=== PATIENT | male | born 1950 | race Caucasian/White ===

== ENCOUNTER 2016-07-13 05:52 | Day surgery (SDC) | payer MEDICARE, OTHER ==
[2016-07-13] MEDS ORDERED: Lactated Ringers 1,000 ML IV ONE (06:20)
[2016-07-13] MEDS ORDERED: Lactated Ringers 1,000 ML IV SCH (06:30)
[2016-07-13] MEDS ORDERED: Ketamine HCl 50 MG/ML IV ONE (08:30)
[2016-07-13] MEDS ORDERED: DIPRIVAN 200 MG/20 ML IV ONE (08:30)
[2016-07-13 08:36] VITALS: O2SAT 98
[2016-07-13 08:42] VITALS: BP 129/73; PULSE 69
--- NOTE | 2016-07-13 09:03 | OP ---
SURGERY DATE/TIME: 07/13/2016716 PREOPERATIVE DIAGNOSIS: History of colon polyps. POSTOPERATIVE DIAGNOSIS: Moderate to severe sigmoid diverticulosis otherwise normal colon. PROCEDURE: Colonoscopy. SURGEON: Dr. Hernandez. ANESTHESIA: MAC. Medications given by anesthesia department. HISTORY: The patient is a 65 year-old white male patient presenting now for his third colonoscopy. He reports that he had polyps found on his first examination. He represents now for re-evaluation. The patient was appraised of the risks of the procedure including the risk of perforation, phlebitis, untoward reaction to medication, bleeding, and missed lesions. The patient verbalized his understanding and desired to have the procedure performed. DESCRIPTION OF PROCEDURE: The patient was given the medications by the anesthesia department. He was placed in left lateral decubitus position. He had continuous pulse oximetry, ECG monitoring, intermittent blood pressure monitoring, and tidal CO2 monitoring during the examination. A digital rectal examination was performed and revealed normal anal sphincter tone and no masses and normal prostate. The flexible Olympus pediatric colonoscope was used to intubate the rectum. A view of the colon was developed sequentially to the cecum. Upon insertion and withdrawal, including a retroflex view in the rectum, was noted moderate to severe sigmoid diverticulosis, no other mucosal lesions were encountered. The scope was removed from the patient who tolerated the procedure well and was sent back to OP recovery in good condition. The prep was noted to be fair.
== END 2016-07-13 08:46 | disposition home or self-care (01) ==
LOC: SDC 05:52
PROVIDERS: ATTEND Family Medicine
PROC: 0DJD8ZZ Inspection of Lower Intestinal Tract, Via Natural or Artificial Opening Endoscopic (ICD-10-PCS; principal; 2016-07-13)
DX: K57.30 Diverticulosis of large intestine without perforation or abscess without bleeding (principal)
CPT/HCPCS: 00810; J2704

== ENCOUNTER 2018-04-13 12:18 | Observation (INO) | payer MEDICARE, OTHER ==
[2018-04-13] MEDS ORDERED: BABY ASPIRIN 81 MG CHEW PO ONE (12:37)
[2018-04-13] MEDS ORDERED: BABY ASPIRIN 81 MG CHEW ONE (12:44)
--- NOTE | 2018-04-13 12:44 | ERPHSYRPT ---
- History of Present Illness Time Seen by Provider: 04/13/18 12:32 Historian: patient Exam Limitations: no limitations Patient Subjective Stated Complaint: Pt states "I have been having chest pain all night and it is still there. I thought it was reflux but it has not gone away." Triage Nursing Assessment: Pt alert and oriented X 3, skin pwd Pt ambulates with an upright steady gait, able to speak in clear full sentences. PT in no apparent respiratory distress. Physician History: 67-year-old white male with history of Parkinson's, high blood pressure, GERD Patient arrives with complaint of pain in his anterior chest just to the left of the chest just to the left of the sternum and xiphoid. He states he began having the pain which she described as a heartburn last night at about midnight he took Prilosec it did not go away then 2 hours ago he began having a heaviness or pressure in the left side of the chest. He states he has been nauseous he has been short of breath he has not vomited no fevers has not been otherwise ill. Past medical history includes Parkinson's, high blood pressure, GERD, right total hip arthroplasty. Past surgical history includes cataracts, right total hip arthroplasty, sinus surgery. Social history negative tobacco negative illicit drugs positive occasional beer. Timing/Duration: today (pain like heartburn at midnight, turned to pressure 2 hours ago) Activities at Onset: none Quality: other (initially like heartburn now pressure) Location: other (Just lateral to the sternum and xiphoid( left)) Severity of Pain-Max: moderate Severity of Pain-Current: mild Modifying Factors: Improves With: nothing Associated Symptoms: nausea, heartburn, No vomiting, No palpitations, No abdominal pain, No cough, No hurts to breathe, No diaphoresis, No chills, No fever, No fatigue, No weakness, No swelling/lump in chest, No syncope, No rash, No headache, No dizziness, No edema, No back pain Prior Chest Pain/Cardiac Workup: no prior chest pain Nitro Today/Relief: no nitro taken today Aspirin Treatment Today: 81 mg x 4, provided by ED Allergies/Adverse Reactions: No Known Drug Allergies Allergy (Verified 07/09/16 11:43) Home Medications: Aspirin [Aspir 81] 81 mg PO DAILY 07/22/11 [History] Amantadine HCl [Amantadine] 100 mg PO BID 07/09/16 [History] Amlodipine Besylate 10 mg [Norvasc 10 MG] 10 mg PO DAILY 07/09/16 [History] Metoprolol Succinate 50 mg [Toprol Xl 50 MG] 50 mg PO DAILY 07/09/16 [ History] Rasagiline Mesylate [Azilect] 1 mg PO DAILY 07/09/16 [History] Tamsulosin HCl 0.4 mg [Flomax 0.4 MG] 0.4 mg PO DAILY 07/09/16 [History] Omeprazole 20 MG [Prilosec 20 mg] 20 mg PO DAILY 07/13/16 [History] Hx Tetanus, Diphtheria Vaccination/Date Given: Yes Hx Influenza Vaccination/Date Given: Yes Hx Pneumococcal Vaccination/Date Given: Yes Immunizations Up to Date: Yes - Review of Systems Constitutional: No Fever, No Chills Eyes: No Symptoms Ears, Nose, & Throat: No Symptoms Respiratory: Dyspnea, No Cough Cardiac: Chest Pain, No Edema, No Palpitations, No Syncope, No Orthopnea, No PND Abdominal/Gastrointestinal: Nausea, No Abdominal Pain, No Vomiting, No Diarrhea , No Constipation, No Hematemesis, No Hematochezia, No Melena, No Dysphagia, No Appetite Changes Genitourinary Symptoms: No Dysuria Musculoskeletal: No Back Pain, No Neck Pain Skin: No Rash Neurological: No Dizziness, No Focal Weakness, No Sensory Changes Psychological: No Symptoms Endocrine: No Symptoms All Other Systems: Reviewed and Negative - Past Medical History Pertinent Past Medical History: Yes Neurological History: Other ENT History: No Pertinent History Cardiac History: Hypertension Respiratory History: No Pertinent History Endocrine Medical History: No Pertinent History Musculoskeletal History: Other GI Medical History: GERD History: No Pertinent History Psycho-Social History: No Pertinent History Male Reproductive Disorders: No Pertinent History Other Medical History: R WINIFRED 2006 - Past Surgical History Past Surgical History: Yes Neuro Surgical History: No Pertinent History Cardiac: No Pertinent History Respiratory: Other Gastrointestinal: No Pertinent History Genitourinary: No Pertinent History Musculoskeletal: Joint Replacement Male Surgical History: No Pertinent History Other Surgical History: sinus surgery,right hip replacement - Social History Smoking Status: Former smoker Exposure to second hand smoke: Yes Drug Use: none Patient Lives Alone: No - Nursing Vital Signs Nursing Vital Signs: Initial Vital Signs Temperature 98.4 F 04/13/18 12:22 Pulse Rate 96 H 04/13/18 12:22 Respiratory Rate 16 04/13/18 12:22 Blood Pressure 163/99 04/13/18 12:22 O2 Sat by Pulse Oximetry 98 04/13/18 12:22 Pain Scale Pain Intensity 2 - Physical Exam General Appearance: no apparent distress, alert Eye Exam: PERRL/EOMI, eyes nml inspection Ears, Nose, Throat Exam: normal ENT inspection, moist mucous membranes Neck Exam: normal inspection, non-tender, supple, full range of motion Respiratory Exam: normal breath sounds, lungs clear, No respiratory distress Cardiovascular Exam: regular rate/rhythm, normal heart sounds, capillary refill <2 sec Gastrointestinal/Abdomen Exam: soft, No tenderness, No mass Back Exam: normal inspection, No CVA tenderness, No vertebral tenderness Extremity Exam: normal inspection, normal range of motion Neurologic Exam: alert, oriented x 3, cooperative, 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 Negative pulmonary embolus. No acute cardiopulmonary abnormalities. 2. Evidence for old granulomatous disease .) Ordered Tests: Active Orders 24 hr Category Date Time Status Clinical Molecular Geneticist STAT Care 04/13/18 12:37 Active EKG-ER Only STAT Care 04/13/18 12:37 Active IV Insertion STAT Care 04/13/18 12:37 Active Pulse Oximetry (ED) STAT Care 04/13/18 12:37 Active CHEST 1 VIEW (PORTABLE) Stat Exams 04/13/18 12:37 Completed CHEST WITH CONTRAST [CT] Stat Exams 04/13/18 13:18 Completed AMYLASE Stat Lab 04/13/18 12:37 Completed CBC W DIFF Stat Lab 04/13/18 12:37 Completed CMP Stat Lab 04/13/18 12:37 Completed D-DIMER QUANTITATION Stat Lab 04/13/18 12:37 Completed LIPASE Stat Lab 04/13/18 12:37 Completed PROTIME WITH INR Stat Lab 04/13/18 12:37 Completed PTT Stat Lab 04/13/18 12:37 Completed TROPONIN Q3H Lab 04/13/18 12:45 Completed TROPONIN Q3H Lab 04/13/18 15:45 Ordered TROPONIN Q3H Lab 04/13/18 18:45 Ordered TROPONIN Q3H Lab 04/13/18 21:45 Ordered TROPONIN Q3H Lab 04/14/18 00:45 Ordered Medication Summary Generic Name Dose Route Start Last Admin Trade Name Freq PRN Reason Stop Dose Admin Pantoprazole Sodium 40 mg 04/13/18 14:48 Protonix 40 Mg Iv IV 04/13/18 14:49 STAT ONE Discontinued Medications Generic Name Dose Route Start Last Admin Trade Name Freq PRN Reason Stop Dose Admin Aspirin 324 mg 04/13/18 12:37 04/13/18 12:45 Baby Aspirin 81 Mg Chew PO 04/13/18 12:38 324 mg STAT ONE Administration Aspirin Confirm 04/13/18 12:44 Baby Aspirin 81 Mg Chew Administered 04/13/18 12:45 Dose 324 mg .ROUTE .[facility]-MED ONE Lab/Rad Data: Laboratory Result Diagrams 04/13/18 12:37 04/13/18 12:37 Laboratory Results 04/13/18 04/13/18 04/13/18 Range/Units 12:45 12:37 12:37 WBC (4.0-10.5) K/mm3 RBC (4.1-5.6) M/mm3 Hgb (12.5-18.0) gm/dl Hct (42-50) % MCV (78-100) fl MCH (26-32) pg MCHC (32-36) g/dl RDW (11.5-14.0) % Plt Count (150-450) K/mm3 MPV (6-9.5) fl Gran % (36.0-66.0) % Eos # (Auto) (0-0.5) Absolute Lymphs (auto) (1.0-4.6) Absolute Monos (auto) (0.0-1.3) Lymphocytes % (24.0-44.0) % Monocytes % (0.0-12.0) % Eosinophils % (0.00-5.0) % Basophils % (0.0-0.4) % Absolute Granulocytes (1.4-6.9) Basophils # (0-0.4) PT 12.2 (8.83-12.87) SECONDS INR 1.05 (0.8-3.0) APTT 30.4 (24.1-36.1) SECONDS D-Dimer 1084 H* (215-500) ng/mL Sodium 142 (137-145) mmol/L Potassium 4.1 (3.5-5.1) mmol/L Chloride 104 (98-107) mmol/L Carbon Dioxide 28 (22-30) mmol/L Anion Gap 13.8 (5-15) MEQ/L BUN 14 (9-20) mg/dL Creatinine 0.81 (0.66-1.25) mg/dL Estimated GFR > 60.0 ML/MIN Glucose 113 H (74-106) mg/dL Calcium 10.5 H (8.4-10.2) mg/dL Total Bilirubin 0.60 (0.2-1.3) mg/dL AST 27 (17-59) U/L ALT 23 (0-50) U/L Alkaline Phosphatase 92 (38-126) U/L Troponin I < 0.012 (0.000-0.034) ng/mL Serum Total Protein 7.9 (6.3-8.2) g/dL Albumin 4.5 (3.5-5.0) g/dL Amylase 40 (30-110) U/L Lipase 218 (23-300) U/L 04/13/18 Range/Units 12:37 WBC 8.1 (4.0-10.5) K/mm3 RBC 5.40 (4.1-5.6) M/mm3 Hgb 15.6 (12.5-18.0) gm/dl Hct 48.1 (42-50) % MCV 89.1 (78-100) fl MCH 28.9 (26-32) pg MCHC 32.4 (32-36) g/dl RDW 13.4 (11.5-14.0) % Plt Count 194 (150-450) K/mm3 MPV 11.1 H (6-9.5) fl Gran % 79.4 H (36.0-66.0) % Eos # (Auto) 0.02 (0-0.5) Absolute Lymphs (auto) 0.99 L (1.0-4.6) Absolute Monos (auto) 0.65 (0.0-1.3) Lymphocytes % 12.3 L (24.0-44.0) % Monocytes % 8.0 (0.0-12.0) % Eosinophils % 0.2 (0.00-5.0) % Basophils % 0.1 (0.0-0.4) % Absolute Granulocytes 6.41 (1.4-6.9) Basophils # 0.01 (0-0.4) PT (8.83-12.87) SECONDS INR (0.8-3.0) APTT (24.1-36.1) SECONDS D-Dimer (215-500) ng/mL Sodium (137-145) mmol/L Potassium (3.5-5.1) mmol/L Chloride (98-107) mmol/L Carbon Dioxide (22-30) mmol/L Anion Gap (5-15) MEQ/L BUN (9-20) mg/dL Creatinine (0.66-1.25) mg/dL Estimated GFR ML/MIN Glucose (74-106) mg/dL Calcium (8.4-10.2) mg/dL Total Bilirubin (0.2-1.3) mg/dL AST (17-59) U/L ALT (0-50) U/L Alkaline Phosphatase (38-126) U/L Troponin I (0.000-0.034) ng/mL Serum Total Protein (6.3-8.2) g/dL Albumin (3.5-5.0) g/dL Amylase (30-110) U/L Lipase (23-300) U/L - Progress Progress: improved Air Movement: fair Progress Note: 04/13/18 14:49 67-year-old white male arrives with complaint of pain in the sternal region and left side of chest symptoms since midnight last night associated with nausea. Initially described as heartburn but later 2 hours prior to arrival described as pressure. Patient is given aspirin 324 mg orally he states the pressure is gone now he is having heartburn again. EKG of the patient remarkable for sinus rhythm 87 bpm axis S1/every 3 pattern patient with several PVCs there are Q waves in leads 3 and aVF there are no acute ST or T wave changes Patient had an elevated d-dimer is chest x-ray was negative for pulmonary embolism or cardiopulmonary abnormality. Chest x-ray was negative for cardiopulmonary abnormalities. Patient's chemistry troponin and CBC were essentially normal. I've discussed the case with Dr. Hernandez the patient's family physician. He has recommended that we give the patient Protonix [address] the patient in observation telemetry and obtain serial cardiac enzymes. - Departure Time of Disposition: 14:51 Departure Disposition: Observation Clinical Impression: Chest pain Qualifiers: Chest pain type: unspecified Qualified Code(s): R07.9 - Chest pain, unspecified Condition: Fair Critical Care Time: No Referrals: VENESSA HERNANDEZ [Primary Care Provider] -
[2018-04-13 12:50] LABS: BASOPHIL % 0.1 % (0.0-0.4); Basophil (Absolute #) 0.01 (0-0.4); Eosinophil % 0.2 % (0.00-5.0); Eosinophil (Absolute #) 0.02 (0-0.5); Granulocyte Absolute (ANC) 6.41 (1.4-6.9); Granulocytes % 79.4 % (36.0-66.0); Hematocrit 48.1 % (42-50); Hemoglobin 15.6 gm/dl (12.5-18.0); Lymphocyte (Absolute #) 0.99 (1.0-4.6); Lymphocytes % 12.3 % (24.0-44.0); Mean Cell Volume 89.1 fl (78-100); Mean Corpuscular Hemoglobin 28.9 pg (26-32); Mean Corpuscular Hgb Concent. 32.4 g/dl (32-36); Mean Platelet Volume 11.1 fl (6-9.5); Monocyte (Absolute #) 0.65 (0.0-1.3); Platelet Count 194 K/mm3 (150-450); Red Cell Distribution Width 13.4 % (11.5-14.0); White Blood Count 8.1 K/mm3 (4.0-10.5)
--- NOTE | 2018-04-13 12:54 | XRAY ---
Indication: Chest pain and nausea. Comparison: December 12, 2014. Portable chest remains clear. Heart and mediastinal structures within normal limits. Bony thorax intact again with mild degenerative changes. Impression: Stable nonacute chest.
[2018-04-13 12:56] LABS: INR 1.05 (0.8-3.0); PROTIME 12.2 SECONDS (8.83-12.87)
[2018-04-13 12:59] LABS: PTT 30.4 SECONDS (24.1-36.1)
[2018-04-13 13:01] LABS: ALBUMIN 4.5 g/dL (3.5-5.0); ALKALINE PHOSPHATASE 92 U/L (38-126); AMYLASE 40 U/L (30-110); ANION GAP 13.8 MEQ/L (5-15); BLOOD UREA NITROGEN 14 mg/dL (9-20); CHLORIDE 104 mmol/L (98-107); Calcium 10.5 mg/dL (8.4-10.2); Carbon Dioxide 28 mmol/L (22-30); Creatinine 1 0.81 mg/dL (0.66-1.25); Glucose 113 mg/dL (74-106); LIPASE 218 U/L (23-300); Potassium 4.1 mmol/L (3.5-5.1); SGOT/AST 27 U/L (17-59); SGPT/ALT 23 U/L (0-50); SODIUM 142 mmol/L (137-145); Total Protein 7.9 g/dL (6.3-8.2)
--- NOTE | 2018-04-13 14:11 | XRAY ---
Indication: Chest pain. Elevated d-dimer. Multiple contiguous axial images obtained through the chest using 80 cc Isovue 370 contrast and PE protocol. Comparison: None There is satisfactory opacification of the pulmonary arteries to include the lobar and segmental branches. No filling defect or pulmonary embolus. Heart is not enlarged. Aorta is normal in course and caliber. Subcarinal chunky calcified nodes. No pathologic mediastinal/hilar lymphadenopathy. Lungs demonstrate minimal bilateral dependent atelectasis and right lower lobe calcified granuloma. No suspicious pulmonary mass, infiltrate, or effusion. Bony thorax intact with mild degenerative changes throughout the spine. Limited upper abdomen unremarkable. Impression: 1. Negative pulmonary embolus. No acute cardiopulmonary abnormalities. 2. Evidence for old granulomatous disease. CT DI 27.39
[2018-04-13] MEDS ORDERED: PROTONIX 40 MG IV IV ONE ×2 (14:48→14:51)
[2018-04-13] MEDS ORDERED: MEDICATION INTERVENTION PO SCH ×2 (17:45)
[2018-04-13] MEDS: NORVASC 5 MG PO SCH (18:13)
[2018-04-13] MEDS: Flomax 0.4 MG PO SCH (18:13)
[2018-04-13] MEDS: Toprol Xl 50 MG PO SCH (18:13)
[2018-04-13] MEDS ORDERED: Carafate 1 GM PO ONE (19:49)
[2018-04-13] MEDS: Carafate 1 GM PO SCH (21:01)
[2018-04-13] MEDS: Sodium Chloride 0.9% 10 ML FLUSH Syringe IV SCH (21:01)
[2018-04-13] MEDS ORDERED: NON-FORMULARY ITEM (Amantadine Hcl [Amantadine] 100 MG) PO SCH (22:00)
[2018-04-14 02:11] LABS: BASOPHIL % 0.2 % (0.0-0.4); Basophil (Absolute #) 0.02 (0-0.4); Eosinophil % 2.7 % (0.00-5.0); Eosinophil (Absolute #) 0.22 (0-0.5); Granulocytes % 65.8 % (36.0-66.0); Hematocrit 44.6 % (42-50); Hemoglobin 14.4 gm/dl (12.5-18.0); Lymphocyte (Absolute #) 1.61 (1.0-4.6); Lymphocytes % 19.6 % (24.0-44.0); Mean Cell Volume 89.2 fl (78-100); Mean Corpuscular Hemoglobin 28.8 pg (26-32); Mean Corpuscular Hgb Concent. 32.3 g/dl (32-36); Mean Platelet Volume 10.8 fl (6-9.5); Monocyte (Absolute #) 0.96 (0.0-1.3); Monocytes % 11.7 % (0.0-12.0); Platelet Count 185 K/mm3 (150-450); Red Cell Distribution Width 13.4 % (11.5-14.0); White Blood Count 8.2 K/mm3 (4.0-10.5)
[2018-04-14 02:27] LABS: ALBUMIN 4.1 g/dL (3.5-5.0); ALKALINE PHOSPHATASE 72 U/L (38-126); ANION GAP 13.2 MEQ/L (5-15); BLOOD UREA NITROGEN 13 mg/dL (9-20); CHLORIDE 104 mmol/L (98-107); Calcium 9.4 mg/dL (8.4-10.2); Carbon Dioxide 26 mmol/L (22-30); Creatinine 1 0.87 mg/dL (0.66-1.25); Glucose 103 mg/dL (74-106); Potassium 3.9 mmol/L (3.5-5.1); SGOT/AST 24 U/L (17-59); SGPT/ALT 20 U/L (0-50); SODIUM 139 mmol/L (137-145); Total Protein 7.2 g/dL (6.3-8.2)
[2018-04-14] MEDS: Sodium Chloride 0.9% 10 ML FLUSH Syringe IV SCH (05:42)
[2018-04-14] MEDS ORDERED: Lactated Ringers 1,000 ML IV SCH (06:30)
[2018-04-14] MEDS: Carafate 1 GM PO SCH (07:05)
[2018-04-14] MEDS: NORVASC 5 MG PO SCH (08:27)
[2018-04-14] MEDS: Flomax 0.4 MG PO SCH (08:27)
[2018-04-14] MEDS: Toprol Xl 50 MG PO SCH (08:32)
--- NOTE | 2018-04-14 08:40 | OP ---
SURGERY DATE/TIME: 04/14/2018 0740 PREOPERATIVE DIAGNOSIS: Epigastric pain. POSTOPERATIVE DIAGNOSIS: Moderate to severe esophagitis. PROCEDURE: EGD. SURGEON: Dr. Hernandez. ANESTHESIA: MAC. Medications given by anesthesia department. BRIEF HISTORY: The patient is a 67 year old white male patient presenting now for epigastric pain. He had stopped his Prilosec several days ago and began having epigastric pain. The patient did have history previously of Hahn's esophagus. The patient was felt the need to have endoscopic evaluation. He did rule out for myocardial infarction. The patient was appraised of the risks of the procedure including the risk of perforation, phlebitis, untoward reaction to medication, bleeding and missed lesions. The patient verbalized his understanding and desired to have the procedure performed. DESCRIPTION OF PROCEDURE: The patient was given the medications by the anesthesia department. He had continuous pulse oximetry, ECG monitoring, intermittent blood pressure monitoring and tidal CO2 monitoring during the examination. He was placed in the left lateral decubitus position. A bite block was placed and the flexible Olympus gastroscope was used to intubate the oropharynx. The scope was easily passed in the esophagus which appeared to be friable and erythematous throughout. The stomach was entered where normal gastric rugal folds were seen and these distended nicely with insufflation of air. The scope was passed along the greater curvature of the stomach to the antrum. The pylorus was intubated. Duodenum inspected and found to be normal. The scope is withdrawn towards the stomach. Again, a retroflex view was obtained of the lesser curvature, fundus and cardia regions of the stomach and these appeared to be essentially normal. The scope was then withdrawn from the patient who tolerated the procedure well and was sent back to the [facility] [place] in good condition.
--- NOTE | 2018-04-14 09:17 | SSS ---
DISCHARGE DIAGNOSIS: ESOPHAGITIS. PROCEDURE: EGD. HISTORY: The patient is 67 year-old white male patient who presented to the emergency room with epigastric pain. The patient was concerned for his heart. He reports that he had stopped taking omeprazole several days ago because he read that he should not continue to take it continuously. He began having epigastric pain and was seen in the emergency room. He was felt to need to be admitted to rule out myocardial infarction. He was admitted to the hospital for evaluation and management. PAST MEDICAL/SURGICAL HISTORY: Significant for gastroesophageal reflux disease. He has Parkinson's disease as well fairly controlled. HOME MEDICATIONS: Include aspirin 81 mg a day, amantadine 100 mg b.i.d., Norvasc 10 mg a day, metoprolol extended release 50 mg a day, Azilect 1 mg a day, Tamsulosin 0.4 mg a day, omeprazole 20 mg a day. ALLERGIES: NKDA. PHYSICAL EXAMINATION: The patient's vital signs on admission showed temperature 98.4F, pulse 96, respiratory rate 16, blood pressure 163/99. O2 saturation 98% on room air. HEENT: Normocephalic, atraumatic. Pupils equal round reactive to light. Extraocular movements intact. Oropharynx is pink and moist. NECK: Supple without lymphadenopathy, thyromegaly or JVD. CHEST: Clear to auscultation. HEART: Regular rate and rhythm without murmurs, rubs or gallops. ABDOMEN: Soft, somewhat tender in the epigastric region but no palpable masses were felt. EXTREMITIES: Without cyanosis, clubbing or edema. NEUROLOGIC: The patient is alert and oriented x3. No focal deficits are noted. LAB DATA AND TESTS: The patient's laboratory studies have shown CT scan of the chest to be stable and nonacute. It was negative for evidence of pulmonary embolism. He had an elevated D-dimer leading to the chest CT. There was evidence for old granulomatous disease. His metabolic panel showed a sugar of 113, BUN 14, creatinine 0.81. Electrolytes normal. Liver enzymes normal. Amylase and lipase were normal. Again, his D-dimer was 1,084, international normalized ratio was 1.05. Troponins have been less than 0.012 on separate occasions. His hemoglobin was 14.4, white count 8,200, PLT count 185,000. HOSPITAL COURSE: By the next morning the patient received IV Protonix. He was also given Pepcid and Carafate. By the next morning he was feeling essentially well. We made the decision to proceed with the EGD which was performed on the morning of 04/14/2018. What was seen as a moderate to severe esophagitis but otherwise the stomach appeared to be normal as did the duodenum. The patient was allowed to return back to the [facility] [place] and to have breakfast and afterwards he was allowed to return home with instructions on his medicine list changed to not take aspirin. We added Pepcid and Carafate to his medical regimen. He will see me in the office in one week.
[2018-04-14 09:30] VITALS: BP 143/74; PULSE 74; O2SAT 94
[2018-04-14] MEDS ORDERED: Ketamine HCl 50 MG/ML IJ ONE (09:34)
[2018-04-14] MEDS ORDERED: DIPRIVAN 200 MG/20 ML IV ONE (09:34)
[2018-04-14] MEDS ORDERED: PATIENT OWN MEDICATION PO SCH ×2 (10:00)
[2018-04-14] MEDS ORDERED: NON-FORMULARY ITEM (Omeprazole 20 Mg [Prilosec 20 Mg] 20 MG) PO SCH (10:00)
[2018-04-14] MEDS ORDERED: PROTONIX 40 MG IV IV SCH (10:00)
[2018-04-14] MEDS ORDERED: Protonix 40MG Tablet PO SCH (10:00)
[2018-04-14] MEDS ORDERED: Ecotrin 325 MG PO SCH (10:00)
[2018-04-14] MEDS ORDERED: NON-FORMULARY ITEM (Amlodipine Besylate 10 Mg [Norvasc 10 Mg] 10 MG) PO SCH (10:00)
[2018-04-14] MEDS ORDERED: Pepcid 20 MG PO SCH (10:00)
[2018-04-14] MEDS ORDERED: RASAGILINE MESYLATE 1 MG PO SCH (10:00)
== END 2018-04-14 09:35 | disposition home or self-care (01) ==
LOC: ED 12:18 → MED SURG 15:11
PROVIDERS: ADMIT Family Medicine; ATTEND Family Medicine
DX: K20.9 Esophagitis, unspecified (principal); Z79.899 Other long term (current) drug therapy
CPT/HCPCS: 36000; 36415; 43235; 71045; 71260; 80053; 82150; 83690; 84484; 85025; 85379; 85610; 85730; 93005; 93041; 93268; 96374; 99285; G0378; 96375; J2704; A9270-GY

== ENCOUNTER 2020-11-06 09:07 | Observation (INO) | payer MEDICARE ==
[2020-11-06] MEDS ORDERED: Lasix 20 MG/2 ML IV SCH (11:30)
[2020-11-06 11:51] LABS: ABO TYPING A; Antibody Screen NEGATIVE (NEGATIVE); RH TYPING POSITIVE
[2020-11-06 11:52] LABS: CROSS MATCH (PRBC) COMPATIBLE (COMPATIBLE)
[2020-11-06 12:07] LABS: BLOOD UREA NITROGEN 19 mg/dL (9-20); CHLORIDE 103 mmol/L (98-107); Calcium 8.3 mg/dL (8.4-10.2); Carbon Dioxide 27 mmol/L (22-30); Creatinine 1 0.67 mg/dL (0.66-1.25); EST GLOMERULAR FILTRATION RATE > 60.0 ML/MIN; Glucose 111 mg/dL (74-106); Potassium 3.5 mmol/L (3.5-5.1); SODIUM 138 mmol/L (137-145)
[2020-11-06] MEDS: Sodium Chloride 0.9% 1000 ML 1,000 ML IV SCH ×2 (13:07→21:16)
[2020-11-06] MEDS ORDERED: TYLENOL 325 MG PO PRN (14:04)
[2020-11-06] MEDS ORDERED: HYDROCODONE-ACETAMIN 10-325 MG PO PRN (14:04)
[2020-11-06] MEDS ORDERED: MENTHOL TP PRN (14:04)
[2020-11-06] MEDS ORDERED: METHYL SALICYLATE TP PRN (14:04)
[2020-11-06] MEDS ORDERED: Voltaren GEL TP PRN (14:04)
[2020-11-06] MEDS ORDERED: ROTIGOTINE TD SCH (14:15)
[2020-11-06 14:23] LABS: Appearance CLEAR (CLEAR); Bilirubin NEGATIVE (NEGATIVE); Blood NEGATIVE Ery/ul (0-5); Glucose NEGATIVE (NEGATIVE); Ketones SMALL (NEGATIVE); Leukocyte Esterase NEGATIVE (NEGATIVE); Mucus SLIGHT /HPF (NEGATIVE); Nitrite NEGATIVE (NEGATIVE); Protein,Urine Dip NEGATIVE (Negative); Specific Gravity 1.018 (1.005-1.025); Urobilinogen 2 mg/dL (0-1); WBC 0-2 /HPF (0-5)
[2020-11-06] MEDS ORDERED: CARBIDOPA PO SCH (15:00)
[2020-11-06] MEDS ORDERED: LEVODOPA PO SCH (15:00)
[2020-11-06] MEDS ORDERED: MEDICATION INTERVENTION MC SCH ×6 (15:00→15:15)
[2020-11-06] MEDS ORDERED: ENTACAPONE 200 MG PO SCH (15:00)
[2020-11-06] MEDS ORDERED: PATIENT OWN MEDICATION PO SCH (17:00)
[2020-11-06] MEDS ORDERED: Sodium Chloride 0.9% 250 ML 250 ML IV ONE (19:49)
[2020-11-06] MEDS: PATIENT OWN MEDICATION PO SCH ×2 (21:13)
[2020-11-07 00:46] LABS: Hematocrit 29.5 % (42-50)
[2020-11-07 01:13] LABS: Hemoglobin 8.9 gm/dl (12.5-18.0)
[2020-11-07 01:16] LABS: ANION GAP 9.4 MEQ/L (5-15); BLOOD UREA NITROGEN 15 mg/dL (9-20); CHLORIDE 105 mmol/L (98-107); Calcium 8.1 mg/dL (8.4-10.2); Carbon Dioxide 27 mmol/L (22-30); Creatinine 1 0.66 mg/dL (0.66-1.25); EST GLOMERULAR FILTRATION RATE > 60.0 ML/MIN; Glucose 97 mg/dL (74-106); Potassium 3.6 mmol/L (3.5-5.1); SODIUM 138 mmol/L (137-145)
[2020-11-07] MEDS ORDERED: Geodon 20 MG INJ IM ONE (01:59)
[2020-11-07] MEDS ORDERED: Sterile H2O 10 ml IJ ONE (02:07)
[2020-11-07 07:28] LABS: Hematocrit 31.9 % (42-50); Hemoglobin 9.4 gm/dl (12.5-18.0); Mean Cell Volume 101.9 fl (78-100); Mean Corpuscular Hgb Concent. 29.5 g/dl (32-36); Mean Platelet Volume 9.6 fl (7.5-11.0); Platelet Count 432 K/mm3 (150-450); Red Blood Count 3.13 M/mm3 (4.1-5.6); Red Cell Distribution Width 19.2 % (11.5-14.0); White Blood Count 5.9 K/mm3 (4.0-10.5)
[2020-11-07 07:56] LABS: ANION GAP 8.6 MEQ/L (5-15); BLOOD UREA NITROGEN 14 mg/dL (9-20); CHLORIDE 106 mmol/L (98-107); Calcium 7.9 mg/dL (8.4-10.2); Carbon Dioxide 27 mmol/L (22-30); EST GLOMERULAR FILTRATION RATE > 60.0 ML/MIN; Glucose 89 mg/dL (74-106); Potassium 3.4 mmol/L (3.5-5.1); SODIUM 139 mmol/L (137-145)
[2020-11-07] MEDS: PATIENT OWN MEDICATION PO SCH ×2 (09:27→09:28)
[2020-11-07] MEDS ORDERED: ZINC PO SCH (10:00)
[2020-11-07] MEDS ORDERED: VIT E PO SCH (10:00)
[2020-11-07] MEDS ORDERED: VIT A PO SCH (10:00)
[2020-11-07] MEDS ORDERED: VIT C PO SCH (10:00)
[2020-11-07] MEDS ORDERED: Ocuvite Tablet PO SCH (10:00)
[2020-11-07] MEDS ORDERED: RASAGILINE MESYLATE 1 MG PO SCH (10:00)
[2020-11-07] MEDS ORDERED: Flomax 0.4 MG PO SCH (10:00)
[2020-11-07] MEDS ORDERED: NON-FORMULARY ITEM (Amlodipine Besylate 10 Mg [Norvasc 10 Mg] 10 MG) PO SCH (10:00)
[2020-11-07] MEDS ORDERED: Toprol-Xl 25MG Tablets PO SCH (10:00)
[2020-11-07] MEDS ORDERED: PATIENT OWN MEDICATION TOP SCH (10:00)
[2020-11-07] MEDS ORDERED: NON-FORMULARY ITEM (Omeprazole 20 Mg [Prilosec 20 Mg] 20 MG) PO SCH (10:00)
[2020-11-07] MEDS ORDERED: COPPER PO SCH (10:00)
[2020-11-07] MEDS ORDERED: PATIENT OWN MEDICATION PO SCH ×2 (10:00)
[2020-11-07] MEDS ORDERED: AMANTADINE HCL PO SCH (10:00)
[2020-11-07] MEDS ORDERED: NORVASC 5 MG PO SCH (10:00)
[2020-11-07] MEDS ORDERED: Protonix 20MG Tablet PO SCH (10:00)
[2020-11-07 12:02] VITALS: BP 132/79; PULSE 79; O2SAT 94
== END 2020-11-07 15:55 ==
LOC: UNDOADMOB 09:43 → MED SURG 09:43
PROVIDERS: ADMIT Family Medicine; ATTEND Family Medicine
DX: D64.9 Anemia, unspecified (principal); I48.91 Unspecified atrial fibrillation; Z79.01 Long term (current) use of anticoagulants; Z79.899 Other long term (current) drug therapy; Z20.822 Contact with and (suspected) exposure to COVID-19
CPT/HCPCS: 36415; 80048; 80053; 81001; 85014; 85018; 85025; 85027; 86850; 86900; 86901; 86922; 93005; P9016; U0003; 36430; G0378; J1940; J3486; A9270-GY

== ENCOUNTER 2020-11-25 06:02 | Day surgery (SDC) | payer MEDICARE ==
[2020-11-25] MEDS ORDERED: Lactated Ringers 1,000 ML IV SCH (06:30)
[2020-11-25] MEDS ORDERED: Lactated Ringers 1,000 ML IV ONE (06:53)
[2020-11-25] MEDS ORDERED: DIPRIVAN 200 MG/20 ML IV ONE (08:02)
[2020-11-25 09:28] VITALS: BP 121/75; PULSE 69; O2SAT 97
--- NOTE | 2020-11-25 13:06 | OP ---
SURGERY DATE/TIME: 11/25/2020 0804 PREOPERATIVE DIAGNOSIS: Anemia. POSTOPERATIVE DIAGNOSIS: Inadequate colon prep. PROCEDURE: Colonoscopy. SURGEON: Dr. Hernandez. ANESTHESIA: MAC. Medications given by anesthesia department. HISTORY: The patient is a 70-year-old white male patient who received a blood transfusion recently with no obvious blood loss. The patient was felt the need to have endoscopic evaluation. He has had four previous colonoscopies in the past. The patient was appraised of the risks of the procedure including the risk of perforation, phlebitis, untoward reaction to medication, bleeding and missed lesions. The patient verbalized his understanding and desired to have the procedure performed. DESCRIPTION OF PROCEDURE: The patient was given the medications by the anesthesia department. He had continuous pulse oximetry, ECG monitoring, intermittent blood pressure monitoring and tidal CO2 monitoring during the examination. He was placed in the left lateral decubitus position. A digital rectal examination was performed and revealed normal anal sphincter tone, no masses and normal prostate. The flexible Olympus pediatric colonoscope was used to intubate the rectum even though immediately the patient had a fair amount of liquidy stool but after the first turn we noted that the patient was having more solid stools and we were able to only proceed approximately 30 cm. We noted the patient had diverticulosis but the prep was obviously inadequate. We therefore terminated the procedure at this point. The patient was taken back to the recovery room in good condition. Again, the prep was considered to be inadequate.
== END 2020-11-25 09:15 ==
LOC: SDC 06:02
PROVIDERS: ATTEND Family Medicine
DX: D64.9 Anemia, unspecified (principal); K57.30 Diverticulosis of large intestine without perforation or abscess without bleeding
CPT/HCPCS: 99100; J2704

== ENCOUNTER 2021-03-03 18:36 | Emergency (ER) | payer MEDICARE ==
--- NOTE | 2021-03-03 19:48 | ERPHSYRPT ---
- History of Present Illness Time Seen by Provider: 03/03/21 19:25 Source: patient, EMS Exam Limitations: no limitations Patient Subjective Stated Complaint: Wellness Triage Nursing Assessment: [id number] Physician History: The patient is a 70-year-old male who presents with a chief complaint of a possible altered mental status. Of note, the patient is coming from an [facility]. He was transported to the emergency department by EMS. ECF reports that they tried to wake the patient but had a hard time awakening the patient and by the time EMS arrived he was awake and alert and oriented x3. The patient currently has no complaints. He states this is happened before He not complained of any pain, shortness of breath, headache, confusion or any focal numbness or paresthesias. He states he does have a history of Parkinson's disease and his is his POA. After our interview, he agreed to a general work-up/screening. Associated Symptoms: denies symptoms, No nausea, No vomiting, No abdominal pain, No shortness of breath, No chest pain Allergies/Adverse Reactions: cyclobenzaprine [From Flexeril] Adverse Reaction (Severe, Verified 03/03/21 18:39) Hallucinations. Pt and report that it interacted with his parkinsons disease. Home Medications: Amlodipine Besylate 10 mg [Norvasc 10 MG] 10 mg PO DAILY 07/09/16 [History] Rasagiline Mesylate [Azilect] 1 mg PO DAILY 07/09/16 [History] Tamsulosin HCl 0.4 mg [Flomax 0.4 MG] 0.4 mg PO DAILY 07/09/16 [History] Acetaminophen 325 mg [Tylenol 325 mg] 650 mg PO Q4H PRN 11/06/20 [History] Carbidopa/Levodopa [Rytary ER 23.75 mg-95 mg Cap] 4 cap PO TID 11/06/20 [History] Diclofenac Sodium Gel [Voltaren GEL] 2 gm TP Q8H PRN 11/06/20 [History] Entacapone 200 mg PO QID 11/06/20 [History] Hydrocodone/Acetaminophen [Hydrocodon-Acetaminophn 10-325] 1 each PO Q8H PRN 11/06/20 [History] Metoprolol Succinate 25 mg Xl* [Toprol-Xl 25MG Tablets] 25 mg PO DAILY 11/06/20 [History] Vit A/Vit C/Vit E/Zinc/Copper [Preservision Areds Tablet] 2 cap PO DAILY 11/06/20 [History] Cyanocobalamin 1000 Mcg/ml [Cyanocobalamin B-12 1000 MCG/ML] 1,000 mcg IJ UD 11/24/20 [History] Menthol [Biofreeze] 118 ml TP Q4-6HPRN PRN 11/24/20 [History] Rivaroxaban [Xarelto] 20 mg PO DAILY 11/24/20 [History] Rotigotine [Neupro] 1 each TD DAILY 11/24/20 [History] Vit C/E/Zn/Coppr/Lutein/Zeaxan [Preservision Areds 2 Softgel] 2 tab PO DAILY 11/24/20 [History] risperiDONE [Risperdal] 0.5 mg PO HS 11/24/20 [History] Hx Tetanus, Diphtheria Vaccination/Date Given: Yes Hx Influenza Vaccination/Date Given: Yes Hx Pneumococcal Vaccination/Date Given: Yes Immunizations Up to Date: Yes Travel Risk - International Travel Have you traveled outside of the country in past 3 weeks: No - Coronavirus Screening Are you exhibiting any of the following symptoms?: No Close contact with a COVID-19 positive Pt in past 14-21 Days: No - Vaccine Status Have you recieved a Covid-19 vaccination: No Topstitcher Zigzag: Unknown - Vaccination Dates Dates if Unknown: unknown - Past Medical History Pertinent Past Medical History: Yes Neurological History: Other ENT History: No Pertinent History Cardiac History: Arrhythmia, Hypertension Respiratory History: No Pertinent History Endocrine Medical History: No Pertinent History Musculoskeletal History: Osteoarthritis GI Medical History: GERD History: No Pertinent History Psycho-Social History: No Pertinent History Male Reproductive Disorders: Prostate Problems Other Medical History: bph. parkinson's. a-fib - Past Surgical History Past Surgical History: Yes Neuro Surgical History: No Pertinent History Cardiac: No Pertinent History Respiratory: No Pertinent History Gastrointestinal: No Pertinent History Genitourinary: No Pertinent History Musculoskeletal: Joint Replacement, Other Male Surgical History: Other Other Surgical History: sinus surgery,right hip replacement. spinal fusion - Social History Smoking Status: Former smoker How long have you smoked: 10 yrs Exposure to second hand smoke: No Drug Use: none Patient Lives Alone: No (Dashawn Hester) - Nursing Vital Signs Nursing Vital Signs: Initial Vital Signs Temperature 98.6 F 03/03/21 18:40 Pulse Rate 84 03/03/21 18:40 Respiratory Rate 18 03/03/21 18:40 Blood Pressure 152/86 03/03/21 18:40 O2 Sat by Pulse Oximetry 98 03/03/21 18:40 Pain Scale Pain Intensity 0 - Physical Exam General Appearance: no apparent distress, alert Eye Exam: PERRL/EOMI, No EOM palsy/anisocoria Ears, Nose, Throat Exam: moist mucous membranes Neck Exam: normal inspection, non-tender, supple, No midline tenderness Respiratory Exam: normal breath sounds, lungs clear, airway intact, No chest tenderness, No respiratory distress, No diminished breath sounds Cardiovascular Exam: regular rate/rhythm, normal heart sounds, normal peripheral pulses Gastrointestinal/Abdomen Exam: soft, No tenderness, No distention, No mass, No guarding Rectal Exam: deferred Back Exam: normal inspection Extremity Exam: normal inspection Neurologic Exam: alert, oriented x 3, cooperative, normal mood/affect, No motor deficits, No sensory deficit Skin Exam: normal color, warm, dry, No rash SpO2: 98 O2 Delivery: Room Air - Course Nursing assessment & vital signs reviewed: Yes EKG Interpreted by Me: RATE, Sinus Rhythm, Left [place] Deviation, NORMAL INTERVALS, NORMAL QRS, Other (Negative for STEMI. 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 EKG similar to EKG compared to 11/2020) - Radiology Exams Chest X-ray Interpretation: Interpreted by me, Reviewed by me, Negative Ordered Tests: Active Orders 24 hr Category Date Time Status EKG-ER Only STAT Care 03/03/21 19:58 Completed CHEST 1 VIEW (PORTABLE) Stat Exams 03/03/21 19:58 Taken BMP Stat Lab 03/03/21 20:40 Completed CBC W DIFF Stat Lab 03/03/21 20:40 Completed CULTURE,URINE Stat Lab 03/03/21 20:40 Received Manual Differential NC Stat Lab 03/03/21 20:40 Completed UA W/RFX UR CULTURE Stat Lab 03/03/21 20:40 Completed Lab/Rad Data: Laboratory Result Diagrams 03/03/21 20:40 03/03/21 20:40 Laboratory Results 12/28/21 12/28/21 12/28/21 Range/Units 20:40 20:40 20:40 WBC 6.1 (4.0-10.5) K/mm3 RBC 4.44 (4.1-5.6) M/mm3 Hgb 12.6 (12.5-18.0) gm/dl Hct 41.5 L (42-50) % MCV 93.5 (78-100) fl MCH 28.4 (26-32) pg MCHC 30.4 L (32-36) g/dl RDW 14.9 H (11.5-14.0) % Plt Count 245 (150-450) K/mm3 MPV 9.9 (7.5-11.0) fl Segmented Neutrophils 60 (36.-66.) % Lymphocytes (Manual) 27 (24-44) % Monocytes (Manual) 9 (0.0-12.0) % Eosinophils (Manual) 2 (0.00-3.0) % Basophils (Manual) 2 H (0.0-1.0) % Platelet Estimate NORMAL (NORMAL) RBC Morphology ABNORMAL Anisocytosis 1+ Sodium 141 (137-145) mmol/L Potassium 4.1 (3.5-5.1) mmol/L Chloride 107 (98-107) mmol/L Carbon Dioxide 28 (22-30) mmol/L Anion Gap 9.7 (5-15) MEQ/L BUN 19 (9-20) mg/dL Creatinine 0.69 (0.66-1.25) mg/dL Estimated GFR > 60.0 ML/MIN Glucose 104 (74-106) mg/dL Calcium 8.8 (8.4-10.2) mg/dL Urine Color YELLOW (YELLOW) Urine Appearance CLEAR (CLEAR) Urine pH 5.0 (5-6) Ur Specific [place] 1.018 (1.005-1.025) Urine Protein NEGATIVE (Negative) Urine Ketones TRACE (NEGATIVE) Urine Blood NEGATIVE (0-5) Balta/ul Urine Nitrite NEGATIVE (NEGATIVE) Urine Bilirubin NEGATIVE (NEGATIVE) Urine Urobilinogen NEGATIVE (0-1) mg/dL Ur Leukocyte Esterase TRACE (NEGATIVE) Urine WBC (Auto) 16-25 (0-5) /HPF Urine RBC (Auto) NONE (0-2) /HPF U Epithel Cells (Auto) NONE (FEW) /HPF Urine Bacteria (Auto) NONE (NEGATIVE) /HPF Urine Mucus (Auto) SLIGHT (NEGATIVE) /HPF Urine Culture Reflexed ORDERED SEPARATELY (NO) Urine Glucose NEGATIVE (NEGATIVE) mg/dL - Progress Progress: unchanged Progress Note: 03/03/21 21:28 Workup was relatively benign. I believe the patient is safe to discharge home/ECF. Certainly possible the patient could have been sleeping the entire time. 03/04/21 06:33 03/04/21 06:34 Counseled pt/family regarding: lab results, diagnosis, need for follow-up, rad results - Departure Departure Disposition: Extended Care Facility Clinical Impression: Visit for [employer] [place] [facility], Hx of Parkinson's disease Condition: Good Critical Care Time: No Referrals: DASHANW HESTER [Primary Care Provider] - Follow up/PCP as directed Instructions: Yearly Physical for Adults
[2021-03-03 20:47] LABS: Hematocrit 41.5 % (42-50); Hemoglobin 12.6 gm/dl (12.5-18.0); Mean Cell Volume 93.5 fl (78-100); Mean Corpuscular Hemoglobin 28.4 pg (26-32); Mean Corpuscular Hgb Concent. 30.4 g/dl (32-36); Mean Platelet Volume 9.9 fl (7.5-11.0); Platelet Count 245 K/mm3 (150-450); Red Blood Count 4.44 M/mm3 (4.1-5.6); Red Cell Distribution Width 14.9 % (11.5-14.0); White Blood Count 6.1 K/mm3 (4.0-10.5)
[2021-03-03 20:57] LABS: ANION GAP 9.7 MEQ/L (5-15); BLOOD UREA NITROGEN 19 mg/dL (9-20); CHLORIDE 107 mmol/L (98-107); Calcium 8.8 mg/dL (8.4-10.2); Carbon Dioxide 28 mmol/L (22-30); Creatinine 1 0.69 mg/dL (0.66-1.25); EST GLOMERULAR FILTRATION RATE > 60.0 ML/MIN; Glucose 104 mg/dL (74-106); Potassium 4.1 mmol/L (3.5-5.1); SODIUM 141 mmol/L (137-145)
[2021-03-03 21:04] LABS: Appearance CLEAR (CLEAR); Bilirubin NEGATIVE (NEGATIVE); Blood NEGATIVE Ery/ul (0-5); Glucose NEGATIVE (NEGATIVE); Ketones TRACE (NEGATIVE); Leukocyte Esterase TRACE (NEGATIVE); Mucus SLIGHT /HPF (NEGATIVE); Nitrite NEGATIVE (NEGATIVE); Protein,Urine Dip NEGATIVE (Negative); Specific Gravity 1.018 (1.005-1.025); Urobilinogen NEGATIVE mg/dL (0-1)
[2021-03-03 21:23] VITALS: BP 152/82; PULSE 63
[2021-03-03 22:09] LABS: Basophil 2 % (0.0-1.0); Eosinophil 2 % (0.00-3.0); Lymphocytes 27 % (24-44); Monocyte 9 % (0.0-12.0); Neutrophils 60 % (36.-66.); Total Cells Counted 100
[2021-03-03 22:10] LABS: ANISOCYTOSIS 1+; Platelet Estimate NORMAL (NORMAL)
[2021-03-04 06:35] VITALS: O2SAT 98
--- NOTE | 2021-03-04 08:50 | XRAY ---
Indication: Confusion. Comparison: April 13, 2018. Portable chest slightly less inflated crowding both lung bases. Remaining heart and lungs unremarkable. Bony thorax intact again with mild degenerative changes. Impression: Nonacute chest.
== END 2021-03-03 21:51 | disposition home or self-care (01) ==
LOC: ED 18:36
DX: Z00.00 Encounter for general adult medical examination without abnormal findings (principal); G20 Parkinson's disease; I10 Essential (primary) hypertension; Z79.891 Long term (current) use of opiate analgesic; Z79.01 Long term (current) use of anticoagulants; Z79.899 Other long term (current) drug therapy
CPT/HCPCS: 36415; 71045; 80048; 81001; 85025; 87086; 93005; 99284

== ENCOUNTER 2022-10-18 13:59 | Observation (INO) | payer MEDICARE ==
--- NOTE | 2022-10-18 14:08 | ERPHSYRPT ---
- History of Present Illness Time Seen by Provider: 10/18/22 14:08 Historian: patient, family Exam Limitations: no limitations Physician History: This is a 72-year-old white male who is on multiple medications to treat Parkinson disease and presents with rectal bleeding described as multiple clots with multiple episodes of passage of these clots rectally since this morning. He had another episode here in the emergency department. Patient is not dizzy. His vital signs are stable. He is not on any anticoagulation therapy. He has a history of hypertension and has prostate issues. Patient did have rectal bleeding back in 2020 requiring blood transfusion. Work-up was unable to determine the cause of that episode of rectal bleeding. Patient's last colonoscopy was 2016 and it showed benign polyps per patient report. Additional, independent history was obtained from the patient's spouse. Patient has no abdominal pain. He has no shortness of breath. He has no chest pain. He is not on any anticoagulation therapy. Timing/Duration: today Activities at Onset: none Severity of Pain-Max: none Severity of Pain-Current: none Modifying Factors: Improves With: nothing Associated Symptoms: denies symptoms Previous symptoms: same symptoms as today (Back in 2020), no recent treatment Allergies/Adverse Reactions: cyclobenzaprine [From Flexeril] Adverse Reaction (Severe, Verified 10/18/22 14:23) Hallucinations. Pt and report that it interacted with his parkinsons disease. Home Medications: Amlodipine Besylate 10 mg [Norvasc 10 MG] 10 mg PO DAILY 07/09/16 [History] Rasagiline Mesylate [Azilect] 1 mg PO DAILY 07/09/16 [History] Tamsulosin HCl 0.4 mg [Flomax 0.4 MG] 0.4 mg PO DAILY 07/09/16 [History] Acetaminophen 325 mg [Tylenol 325 mg] 650 mg PO Q4H PRN 11/06/20 [History] Carbidopa/Levodopa [Rytary ER 23.75 mg-95 mg Cap] 4 cap PO TID 11/06/20 [History] Diclofenac Sodium Gel [Voltaren GEL] 2 gm TP Q8H PRN 11/06/20 [History] Entacapone 200 mg PO QID 11/06/20 [History] Hydrocodone/Acetaminophen [Hydrocodon-Acetaminophn 10-325] 1 each PO Q8H PRN 11/06/20 [History] Metoprolol Succinate 25 mg Xl* [Toprol-Xl 25MG Tablets] 25 mg PO DAILY 11/06/20 [History] Vit A/Vit C/Vit E/Zinc/Copper [Preservision Areds Tablet] 2 cap PO DAILY 11/06/20 [History] Cyanocobalamin 1000 Mcg/ml [Cyanocobalamin B-12 1000 MCG/ML] 1,000 mcg IJ UD 11/24/20 [History] Menthol [Biofreeze] 118 ml TP Q4-6HPRN PRN 11/24/20 [History] Rivaroxaban [Xarelto] 20 mg PO DAILY 11/24/20 [History] Rotigotine [Neupro] 1 each TD DAILY 11/24/20 [History] Vit C/E/Zn/Coppr/Lutein/Zeaxan [Preservision Areds 2 Softgel] 2 tab PO DAILY 11/24/20 [History] risperiDONE [Risperdal] 0.5 mg PO HS 11/24/20 [History] Hx Tetanus, Diphtheria Vaccination/Date Given: Yes Hx Influenza Vaccination/Date Given: Yes Hx Pneumococcal Vaccination/Date Given: Yes Travel Risk - International Travel Have you traveled outside of the country in past 3 weeks: No - Coronavirus Screening Are you exhibiting any of the following symptoms?: No Close contact with a COVID-19 positive Pt in past 14-21 Days: No - Vaccine Status Have you recieved a Covid-19 vaccination: No Director Nicu: Unknown - Vaccination Dates Dates if Unknown: unknown - Review of Systems Constitutional: No Symptoms Eyes: No Symptoms Ears, Nose, & Throat: No Symptoms Respiratory: No Symptoms Cardiac: No Symptoms Abdominal/Gastrointestinal: Hematochezia, Melena Genitourinary Symptoms: No Symptoms Musculoskeletal: No Symptoms Skin: No Symptoms Neurological: No Symptoms Psychological: No Symptoms Endocrine: No Symptoms Hematologic/Lymphatic: No Symptoms Immunological/Allergic: No Symptoms All Other Systems: Reviewed and Negative - Past Medical History Pertinent Past Medical History: Yes Neurological History: Other ENT History: No Pertinent History Cardiac History: High Cholesterol, Hypertension, Other Respiratory History: No Pertinent History Endocrine Medical History: No Pertinent History Musculoskeletal History: Degenerative Disk Disease, Osteoarthritis, Other GI Medical History: GERD History: No Pertinent History Psycho-Social History: No Pertinent History Male Reproductive Disorders: Prostate Problems Other Medical History: PARKINSON'S DZ DX'ED 2014; 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 DX'ED W/ ARRYTHMIA. R WINIFRED 2006 - Past Surgical History Past Surgical History: Yes Neuro Surgical History: No Pertinent History Cardiac: No Pertinent History Respiratory: No Pertinent History Gastrointestinal: No Pertinent History Genitourinary: No Pertinent History Musculoskeletal: Joint Replacement, Other Male Surgical History: Other Other Surgical History: sinus surgery,right hip replacement. spinal fusion - Social History Smoking Status: Former smoker How long have you smoked: 10 yrs Exposure to second hand smoke: No Drug Use: none Patient Lives Alone: No (Villedanik Morgan [place]) - Nursing Vital Signs Nursing Vital Signs: Initial Vital Signs Pulse Rate 73 10/18/22 14:25 Blood Pressure 114/77 10/18/22 14:25 O2 Sat by Pulse Oximetry 94 L 10/18/22 14:25 Pain Scale Pain Intensity 0 - Physical Exam General Appearance: no apparent distress, alert, anxiety Eye Exam: PERRL/EOMI, eyes nml inspection Ears, Nose, Throat Exam: normal ENT inspection, moist mucous membranes Neck Exam: normal inspection, non-tender, supple, full range of motion Respiratory Exam: normal breath sounds, lungs clear, airway intact, No chest tenderness, No respiratory distress Cardiovascular Exam: regular rate/rhythm, normal heart sounds, normal peripheral pulses Gastrointestinal/Abdomen Exam: soft, normal bowel sounds, No tenderness Rectal Exam: not done Back Exam: normal inspection, normal range of motion, No CVA tenderness, No vertebral tenderness Extremity Exam: normal inspection, normal range of motion, pelvis stable Neurologic Exam: alert, oriented x 3, cooperative, cycle analyst II-XII nml as tested, normal mood/affect, other (Patient has Parkinson's disease) Skin Exam: normal color, warm, dry Lymphatic Exam: No adenopathy SpO2 Interpretation: normal O2 Delivery: Room Air - Course Nursing assessment & vital signs reviewed: Yes Ordered Tests: Active Orders 24 hr Category Date Time Status Bedrest with BRP/BSC TOLERATED Activity 10/18/22 18:05 Active IV Insertion STAT Care 10/18/22 14:[address] in Observation ROUTINE Care 10/18/22 17:58 Active NPO except Meds Diet 10/19/22 00:01 Active ABDOMEN AND PELVIS W/0 CONTRAS [CT] Stat Exams 10/18/22 14:28 Completed AMYLASE Stat Lab 10/18/22 15:06 Completed CBC W DIFF AM.LAB Lab 10/19/22 04:00 Ordered CBC W DIFF Stat Lab 10/18/22 15:06 Completed CMP AM.LAB Lab 10/19/22 04:00 Ordered CMP Stat Lab 10/18/22 15:06 Completed HEMOGLOBIN AND HEMATOCRIT Routine Lab 10/18/22 19:08 Ordered LIPASE Stat Lab 10/18/22 15:06 Completed Occult Blood-Fecal Screen (Diagnostic) [OB-FECAL SCREEN Lab 10/18/22 16:31 Completed ] Stat PROTIME WITH INR Stat Lab 10/18/22 15:06 Completed Transfer Order Routine Transfer 10/18/22 Ordered Medication Summary Generic Name Dose Route Start Last Admin Trade Name Freq PRN Reason Stop Dose Admin Acetaminophen 325 mg 10/18/22 18:04 Acetaminophen 325 Mg Tablet PO 11/17/22 18:03 Q4H PRN PRN PAIN, FEVER, HEADACHE Sodium Chloride 1,000 mls @ 150 mls/hr 10/18/22 18:00 10/18/22 18:44 Sodium Chloride 0.9% 1000 Ml IV 11/17/22 17:59 500 mls/hr .Q6H40M CHET Administration Pantoprazole Sodium 40 mg 10/18/22 22:00 Pantoprazole 40 Mg Vial IV 11/17/22 21:59 BID CEHT Lab/Rad Data: Laboratory Result Diagrams 10/18/22 15:06 10/18/22 15:06 Laboratory Results 10/18/22 10/18/22 10/18/22 Range/Units 16:31 16:00 15:06 WBC (4.0-10.5) x10^3/uL RBC (4.1-5.6) x10^6/uL Hgb (12.5-18.0) g/dL Hct (42-50) % MCV (78-100) fL MCH (26-32) pg MCHC (32-36) g/dL RDW (11.5-14.0) % Plt Count (150-450) x10^3/uL MPV (7.5-11.0) fL Gran % (36.0-66.0) % Immature Gran % (Auto) (0.00-0.4) % Nucleat RBC Rel Count (0.00-0.1) % Eos # (Auto) (0-0.5) x10^3/uL Immature Gran # (Auto) (0.00-0.03) x10^3u/L Absolute Lymphs (auto) (1.0-4.6) x10^3/uL Absolute Monos (auto) (0.0-1.3) x10^3/uL Absolute Nucleated RBC (0.00-0.01) x10^3u/L Lymphocytes % (24.0-44.0) % Monocytes % (0.0-12.0) % Eosinophils % (0.00-5.0) % Basophils % (0.0-0.4) % Absolute Granulocytes (1.4-6.9) x10^3/uL Basophils # (0-0.4) x10^3/uL PT (9.4-12.5) SECONDS INR (0.8-3.0) Sodium (137-145) mmol/L Potassium (3.5-5.1) mmol/L Chloride (98-107) mmol/L Carbon Dioxide (22-30) mmol/L Anion Gap (5-15) MEQ/L BUN (9-20) mg/dL Creatinine (0.66-1.25) mg/dL Estimated GFR ML/MIN Glucose (74-106) mg/dL Calcium (8.4-10.2) mg/dL Total Bilirubin (0.2-1.3) mg/dL AST (17-59) U/L ALT (0-50) U/L Alkaline Phosphatase (38-126) U/L Serum Total Protein (6.3-8.2) g/dL Albumin (3.5-5.0) g/dL Amylase < 30 L (30-110) U/L Lipase 162 (23-300) U/L Stl Occult Blood (IFOB) POSITIVE A (NEGATIVE) ABO Group A Rh Factor POSITIVE Antibody Screen NEGATIVE (NEGATIVE) 10/18/22 10/18/22 10/18/22 Range/Units 15:06 15:06 15:06 WBC 6.7 (4.0-10.5) x10^3/uL RBC 4.52 (4.1-5.6) x10^6/uL Hgb 13.4 (12.5-18.0) g/dL Hct 42.1 (42-50) % MCV 93.1 (78-100) fL MCH 29.6 (26-32) pg MCHC 31.8 L (32-36) g/dL RDW 12.7 (11.5-14.0) % Plt Count 220 (150-450) x10^3/uL MPV 10.8 (7.5-11.0) fL Gran % 72.8 H (36.0-66.0) % Immature Gran % (Auto) 0.3 (0.00-0.4) % Nucleat RBC Rel Count 0.0 (0.00-0.1) % Eos # (Auto) 0.06 (0-0.5) x10^3/uL Immature Gran # (Auto) 0.02 (0.00-0.03) x10^3u/L Absolute Lymphs (auto) 1.16 (1.0-4.6) x10^3/uL Absolute Monos (auto) 0.54 (0.0-1.3) x10^3/uL Absolute Nucleated RBC 0.00 (0.00-0.01) x10^3u/L Lymphocytes % 17.3 L (24.0-44.0) % Monocytes % 8.1 (0.0-12.0) % Eosinophils % 0.9 (0.00-5.0) % Basophils % 0.6 (0.0-0.4) % Absolute Granulocytes 4.88 (1.4-6.9) x10^3/uL Basophils # 0.04 (0-0.4) x10^3/uL PT 10.9 (9.4-12.5) SECONDS INR 1.00 (0.8-3.0) Sodium 140 (137-145) mmol/L Potassium 4.1 (3.5-5.1) mmol/L Chloride 104 (98-107) mmol/L Carbon Dioxide 27 (22-30) mmol/L Anion Gap 12.3 (5-15) MEQ/L BUN 19 (9-20) mg/dL Creatinine 0.82 (0.66-1.25) mg/dL Estimated GFR > 60.0 ML/MIN Glucose 105 (74-106) mg/dL Calcium 8.7 (8.4-10.2) mg/dL Total Bilirubin 0.80 (0.2-1.3) mg/dL AST 25 (17-59) U/L ALT 11 (0-50) U/L Alkaline Phosphatase 73 (38-126) U/L Serum Total Protein 6.5 (6.3-8.2) g/dL Albumin 3.9 (3.5-5.0) g/dL Amylase (30-110) U/L Lipase (23-300) U/L Stl Occult Blood (IFOB) (NEGATIVE) ABO Group Rh Factor Antibody Screen (NEGATIVE) - Progress Progress: improved, re-examined Progress Note: 10/18/22 17:11 This patient's medical issue is 1 of high complexity. The level complexity and the work-up performed is based on review of the patient's past medical history, review of the patient's medication list, review of the patient's drug allergy list, history of present illness and physical findings on examination. The work-up in this patient includes placement of an intravenous line, CBC, CMP, CT scan of the abdomen pelvis, amylase and lipase. In addition we did a PT/INR and occult blood test. 10/18/22 17:12 10/18/22 17:[address] scan of the abdomen pelvis was interpreted by the radiologist and I reviewed the impression. There is sigmoid colon diverticulosis without evidence of sigmoid diverticulitis. I did speak with Dr. Edwards, our telehospitalist. I reviewed the patient history, review patient's medication list, review of the drug allergy list, history of present illness, and physical findings on examination with him. I also reviewed the work-up results that were performed. Although, at this time, the patient appears hemodynamically stable and his hemoglobin is in the normal range, I am concerned that this patient continues to pass blood clots rectally. He is elderly as is his . Together, Dr. Edwards and I agree that the patient should be admitted to the hospital, obtain surgical consultation and repeat the hemoglobin in 4 hours as well as in the morning. I will type and screen this patient in the event the hemoglobin rapidly changes/decreases. I have put a call into the surgeon cotton washer and are waiting the callback. 10/18/22 18:49 I was able to speak with the surgeon Dr. Van Larson prior to the patient being transferred to the floor. He will make a consultation on this patient. Counseled pt/family regarding: lab results, diagnosis, need for follow-up, rad results Medical Desision Making - Independent Historian Additional History obtained from: Spouse - Diagnostic Testing Diagnostic test were ordered, analyzed, and reviewed by me: Yes Radiological Interpretation: Reviewed by me, Teleradiologist Report - Risk of complications The pt has a high risk of morbidity or mortality based on: Decision regarding hospitilization or escalation of hosp level of care - Departure Departure Disposition: In-patient Admission Clinical Impression: Rectal bleeding Condition: Stable Critical Care Time: No Referrals: NANCY FUENTES MD [Primary Care Provider] - Follow up/PCP as directed
[2022-10-18 15:07] LABS: Absolute Neutrophil Ct (ANC) 4.88 x10^3/uL (1.4-6.9); BASOPHIL % 0.6 % (0.0-0.4); Basophil (Absolute #) 0.04 x10^3/uL (0-0.4); Eosinophil % 0.9 % (0.00-5.0); Eosinophil (Absolute #) 0.06 x10^3/uL (0-0.5); Hematocrit 42.1 % (42-50); Hemoglobin 13.4 g/dL (12.5-18.0); IMMATURE GRAN # 0.02 x10^3u/L (0.00-0.03); IMMATURE GRAN % 0.3 % (0.00-0.4); Lymphocyte (Absolute #) 1.16 x10^3/uL (1.0-4.6); Lymphocytes % 17.3 % (24.0-44.0); Mean Cell Volume 93.1 fL (78-100); Mean Corpuscular Hemoglobin 29.6 pg (26-32); Mean Corpuscular Hgb Concent. 31.8 g/dL (32-36); Mean Platelet Volume 10.8 fL (7.5-11.0); Monocyte (Absolute #) 0.54 x10^3/uL (0.0-1.3); Monocytes % 8.1 % (0.0-12.0); Neutrophil % 72.8 % (36.0-66.0); Platelet Count 220 x10^3/uL (150-450); Red Blood Count 4.52 x10^6/uL (4.1-5.6); Red Cell Distribution Width 12.7 % (11.5-14.0); White Blood Count 6.7 x10^3/uL (4.0-10.5)
[2022-10-18 15:20] LABS: ALBUMIN 3.9 g/dL (3.5-5.0); ALKALINE PHOSPHATASE 73 U/L (38-126); ANION GAP 12.3 MEQ/L (5-15); BLOOD UREA NITROGEN 19 mg/dL (9-20); CHLORIDE 104 mmol/L (98-107); Calcium 8.7 mg/dL (8.4-10.2); Carbon Dioxide 27 mmol/L (22-30); Creatinine 1 0.82 mg/dL (0.66-1.25); EST GLOMERULAR FILTRATION RATE > 60.0 ML/MIN; Glucose 105 mg/dL (74-106); PROTIME 10.9 SECONDS (9.4-12.5); Potassium 4.1 mmol/L (3.5-5.1); SGOT/AST 25 U/L (17-59); SGPT/ALT 11 U/L (0-50); SODIUM 140 mmol/L (137-145); Total Protein 6.5 g/dL (6.3-8.2)
[2022-10-18 15:35] LABS: AMYLASE < 30 U/L (30-110); LIPASE 162 U/L (23-300)
[2022-10-18 16:48] LABS: IFOB TEST RESULTS POSITIVE (NEGATIVE)
[2022-10-18] MEDS ORDERED: TYLENOL 325 MG PO PRN (18:04)
--- NOTE | 2022-10-18 18:09 | PCM.NOTE ---
Date and Time: 10/18/221753 Subjective Assessment: This is a 72-year-old male with a hx of Parkinson disease, hypertension and has prostate issues.. He presented to ER with rectal bleeding described as multiple clots with multiple episodes of passage of these clots rectally since this morning starting at 4AM. He had another episode here in the emergency department. Hgb is stable at 13.4. His vital signs are stable. He is not on any anticoagulation therapy. Patient did have rectal bleeding back in 2020 requiring blood transfusion. Work-up was unable to determine the cause of that episode of rectal bleeding. Patient's last colonoscopy was 2016 and it showed benign polyps per patient report. He is not on any anticoagulation therapy. Patient is not dizzy and denies any other sxs at this time. - Review of Systems Constitutional: No Fever, No Chills Eyes: No Symptoms Ears, Nose, & Throat: No Symptoms Respiratory: No Cough, No Short Of Breath Cardiac: No Chest Pain, No Edema, No Syncope Abdominal/Gastrointestinal: Hematochezia, No Abdominal Pain, No Nausea, No Vomiting, No Diarrhea Genitourinary Symptoms: No Dysuria Musculoskeletal: No Back Pain, No Neck Pain Skin: No Rash Neurological: No Dizziness, No Focal Weakness, No Sensory Changes Psychological: No Symptoms Endocrine: No Symptoms Hematologic/Lymphatic: No Symptoms Immunological/Allergic: No Symptoms Objective Exam General Appearance: no apparent distress, alert Neurologic Exam: alert, oriented x 3, cooperative, normal mood/affect, nml cerebellar function, sensation nml, No motor deficits Skin Exam: normal color, warm, dry Eye Exam: PERRL, EOMI, eyes nml inspection Ears, Nose, Throat Exam: normal ENT inspection, pharynx normal, moist mucous membranes Neck Exam: normal inspection, non-tender, supple, full range of motion Respiratory Exam: normal breath sounds, lungs clear, No respiratory distress Cardiovascular Exam: regular rate/rhythm, normal heart sounds Gastrointestinal/Abdomen Exam: soft, No tenderness, No mass Extremity Exam: normal inspection, normal range of motion Back Exam: normal inspection, normal range of motion, No CVA tenderness, No vertebral tenderness Male Genitalia Exam: deferred Rectal Exam: deferred OBJECTIVE DATA Vital Signs: Vital Signs - 24 hr Temp Pulse Resp BP BP Pulse Ox 10/18/22 17:09 78 17 117/55 98 10/18/22 17:00 61 25 H 117/55 98 10/18/22 16:30 101 H 18 97/67 95 10/18/22 16:00 88 19 108/76 97 10/18/22 15:20 114 H 20 122/77 98 10/18/22 14:48 97.0 F 94 H 18 114/77 94 L 10/18/22 14:25 73 114/77 94 L Pain Assessment - Last Documented Pain Intensity 0 Intake and Output: Intake & Output 10/16/22 10/17/22 10/18/22 10/19/22 11:59 11:59 11:59 11:59 Weight 90.718 kg Lab Results: Lab Results-Last 24 Hours 10/18/22 10/18/22 10/18/22 Range/Units 15:06 15:06 15:06 WBC 6.7 (4.0-10.5) x10^3/uL RBC 4.52 (4.1-5.6) x10^6/uL Hgb 13.4 (12.5-18.0) g/dL Hct 42.1 (42-50) % MCV 93.1 (78-100) fL MCH 29.6 (26-32) pg MCHC 31.8 L (32-36) g/dL RDW 12.7 (11.5-14.0) % Plt Count 220 (150-450) x10^3/uL MPV 10.8 (7.5-11.0) fL Gran % 72.8 H (36.0-66.0) % Immature Gran % (Auto) 0.3 (0.00-0.4) % Nucleat RBC Rel Count 0.0 (0.00-0.1) % Eos # (Auto) 0.06 (0-0.5) x10^3/uL Immature Gran # (Auto) 0.02 (0.00-0.03) x10^3u/L Absolute Lymphs (auto) 1.16 (1.0-4.6) x10^3/uL Absolute Monos (auto) 0.54 (0.0-1.3) x10^3/uL Absolute Nucleated RBC 0.00 (0.00-0.01) x10^3u/L Lymphocytes % 17.3 L (24.0-44.0) % Monocytes % 8.1 (0.0-12.0) % Eosinophils % 0.9 (0.00-5.0) % Basophils % 0.6 (0.0-0.4) % Absolute Granulocytes 4.88 (1.4-6.9) x10^3/uL Basophils # 0.04 (0-0.4) x10^3/uL PT 10.9 (9.4-12.5) SECONDS INR 1.00 (0.8-3.0) Sodium 140 (137-145) mmol/L Potassium 4.1 (3.5-5.1) mmol/L Chloride 104 (98-107) mmol/L Carbon Dioxide 27 (22-30) mmol/L Anion Gap 12.3 (5-15) MEQ/L BUN 19 (9-20) mg/dL Creatinine 0.82 (0.66-1.25) mg/dL Estimated GFR > 60.0 ML/MIN Glucose 105 (74-106) mg/dL Calcium 8.7 (8.4-10.2) mg/dL Total Bilirubin 0.80 (0.2-1.3) mg/dL AST 25 (17-59) U/L ALT 11 (0-50) U/L Alkaline Phosphatase 73 (38-126) U/L Serum Total Protein 6.5 (6.3-8.2) g/dL Albumin 3.9 (3.5-5.0) g/dL Amylase (30-110) U/L Lipase (23-300) U/L Stl Occult Blood (IFOB) (NEGATIVE) 10/18/22 10/18/22 Range/Units 15:06 16:31 WBC (4.0-10.5) x10^3/uL RBC (4.1-5.6) x10^6/uL Hgb (12.5-18.0) g/dL Hct (42-50) % MCV (78-100) fL MCH (26-32) pg MCHC (32-36) g/dL RDW (11.5-14.0) % Plt Count (150-450) x10^3/uL MPV (7.5-11.0) fL Gran % (36.0-66.0) % Immature Gran % (Auto) (0.00-0.4) % Nucleat RBC Rel Count (0.00-0.1) % Eos # (Auto) (0-0.5) x10^3/uL Immature Gran # (Auto) (0.00-0.03) x10^3u/L Absolute Lymphs (auto) (1.0-4.6) x10^3/uL Absolute Monos (auto) (0.0-1.3) x10^3/uL Absolute Nucleated RBC (0.00-0.01) x10^3u/L Lymphocytes % (24.0-44.0) % Monocytes % (0.0-12.0) % Eosinophils % (0.00-5.0) % Basophils % (0.0-0.4) % Absolute Granulocytes (1.4-6.9) x10^3/uL Basophils # (0-0.4) x10^3/uL PT (9.4-12.5) SECONDS INR (0.8-3.0) Sodium (137-145) mmol/L Potassium (3.5-5.1) mmol/L Chloride (98-107) mmol/L Carbon Dioxide (22-30) mmol/L Anion Gap (5-15) MEQ/L BUN (9-20) mg/dL Creatinine (0.66-1.25) mg/dL Estimated GFR ML/MIN Glucose (74-106) mg/dL Calcium (8.4-10.2) mg/dL Total Bilirubin (0.2-1.3) mg/dL AST (17-59) U/L ALT (0-50) U/L Alkaline Phosphatase (38-126) U/L Serum Total Protein (6.3-8.2) g/dL Albumin (3.5-5.0) g/dL Amylase < 30 L (30-110) U/L Lipase 162 (23-300) U/L Stl Occult Blood (IFOB) POSITIVE A (NEGATIVE) Radiology Exams: Radiology Procedures Category Date Time Status ABDOMEN AND PELVIS W/0 CONTRAS [CT] Stat Exams 10/18/22 14:28 Taken Assessment/Plan (1) Rectal bleeding Current Visit: Yes Status: Acute Code(s): K62.5 - HEMORRHAGE OF ANUS AND RECTUM (2) Hx of Parkinson's disease Current Visit: No Status: Acute Code(s): Z86.69 - PERSONAL HISTORY OF DIS OF THE NERVOUS SYS AND SENSE ORGANS Telemedicine Encounter - Telemedicine Encounter Telemedicine Encounter: 1. Rectal bleeding - ER physican consulting surgery for possible Colonoscopy - Hgb stable upon admission at 13.4 - recheck H& H at 1900 - CBC, CMP in AM - Protonix 40mg IV BID - IV fluids - NPO at midnight 2. Hx of parkinson's - NPO except meds. - no current concerns VTE: none PPI: Protonix POA: D/C plan: 1-2 days
--- NOTE | 2022-10-18 18:10 | XRAY ---
CLINICAL HISTORY:Rectal bleeding. COMPARISON:None. TECHNIQUES:CT scan abdomen and pelvis without IV contrast. Coronal and sagittal images were also obtained. FINDINGS: Metallic streak artifacts are seen in the pelvis obscuring the images. Within the limitations of the non-IV contrast imaging the liver appears unremarkable. No focal lesion was seen. No intra or extrahepatic biliary dilatation was seen. The gallbladder appeared distended and filled with debris and gas-filled stones. The visualized CBD appears unremarkable. Pancreas appears unremarkable. A few tiny calcifications are noted within the liver and spleen. Both adrenal glands are normal. A large simple cyst measuring 6.6 X 8.3 X 8.5 cm is seen along the anterior superior pole of the right kidney. Another tiny subcentimeter exophytic simple cyst is seen at the lower pole of the left kidney. Atherosclerotic calcification of the abdominal aorta is seen. There is aneurysmal dilatation of the lower abdominal aorta measuring 4.3 X 3.8 X 4.1 cm. Visualized urinary bladder appears partially distended and unremarkable. Rectum and the large bowel loops appear filled with fecal material. Small outpouchings are seen arising from the sigmoid colon representing sigmoid diverticulosis. No adjacent fat streaking is noted to suggest diverticulitis. Visualized osseous structures show the degenerative changes of the lumbar spine with lumbar rods and transpedicular screws at L4-L5 and L5-S1 levels. IMPRESSION: The gallbladder appeared distended and filled with debris and gas-filled stones. A large simple cyst along the anterior superior pole of the right kidney. Another tiny subcentimeter exophytic simple cyst is seen at the lower pole of the left kidney. Aneurysmal dilatation of the lower abdominal aorta. Small outpouchings are seen arising from the sigmoid colon representing sigmoid diverticulosis. No adjacent fat streaking is noted to suggest diverticulitis. Visualized osseous structures show the degenerative changes of the lumbar spine with lumbar rods with transpedicular screws at L4-L5 and L5-S1 levels. Electronically Signed by: Lakshmi Del Toro MD. (10/18/2022 15:44:26 [employer]INE [employer])
[2022-10-18 18:39] LABS: ABO TYPING A; Antibody Screen NEGATIVE (NEGATIVE); RH TYPING POSITIVE
[2022-10-18] MEDS: Sodium Chloride 0.9% 1000 ML 1,000 ML IV SCH ×2 (18:44→22:59)
[2022-10-18] MEDS: PROTONIX 40 MG IV IV SCH (21:21)
[2022-10-18 22:00] LABS: BASOPHIL % 0.5 % (0.0-0.4); Basophil (Absolute #) 0.04 x10^3/uL (0-0.4); Eosinophil % 0.2 % (0.00-5.0); Eosinophil (Absolute #) 0.02 x10^3/uL (0-0.5); Hematocrit 33.7 % (42-50); Hemoglobin 10.7 g/dL (12.5-18.0); IMMATURE GRAN # 0.03 x10^3u/L (0.00-0.03); IMMATURE GRAN % 0.4 % (0.00-0.4); Lymphocytes % 14.2 % (24.0-44.0); Mean Cell Volume 94.4 fL (78-100); Mean Corpuscular Hgb Concent. 31.8 g/dL (32-36); Mean Platelet Volume 10.6 fL (7.5-11.0); Monocyte (Absolute #) 0.49 x10^3/uL (0.0-1.3); Monocytes % 5.8 % (0.0-12.0); Neutrophil % 78.9 % (36.0-66.0); Platelet Count 206 x10^3/uL (150-450); Red Blood Count 3.57 x10^6/uL (4.1-5.6); Red Cell Distribution Width 12.8 % (11.5-14.0); White Blood Count 8.5 x10^3/uL (4.0-10.5)
[2022-10-18] MEDS ORDERED: NON-FORMULARY ITEM PO SCH (23:00)
[2022-10-19 04:45] LABS: Absolute Neutrophil Ct (ANC) 3.54 x10^3/uL (1.4-6.9); BASOPHIL % 0.5 % (0.0-0.4); Basophil (Absolute #) 0.03 x10^3/uL (0-0.4); Eosinophil % 1.9 % (0.00-5.0); Eosinophil (Absolute #) 0.11 x10^3/uL (0-0.5); Hematocrit 28.2 % (42-50); Hemoglobin 8.9 g/dL (12.5-18.0); IMMATURE GRAN # 0.01 x10^3u/L (0.00-0.03); IMMATURE GRAN % 0.2 % (0.00-0.4); Lymphocyte (Absolute #) 1.42 x10^3/uL (1.0-4.6); Lymphocytes % 24.9 % (24.0-44.0); Mean Cell Volume 93.1 fL (78-100); Mean Corpuscular Hemoglobin 29.4 pg (26-32); Mean Corpuscular Hgb Concent. 31.6 g/dL (32-36); Mean Platelet Volume 10.8 fL (7.5-11.0); Monocytes % 10.5 % (0.0-12.0); Platelet Count 170 x10^3/uL (150-450); Red Blood Count 3.03 x10^6/uL (4.1-5.6); White Blood Count 5.7 x10^3/uL (4.0-10.5)
[2022-10-19 05:00] LABS: ALBUMIN 2.7 g/dL (3.5-5.0); ALKALINE PHOSPHATASE 51 U/L (38-126); ANION GAP 5.9 MEQ/L (5-15); BLOOD UREA NITROGEN 25 mg/dL (9-20); CHLORIDE 108 mmol/L (98-107); Calcium 7.7 mg/dL (8.4-10.2); Carbon Dioxide 28 mmol/L (22-30); Creatinine 1 0.74 mg/dL (0.66-1.25); EST GLOMERULAR FILTRATION RATE > 60.0 ML/MIN; Glucose 92 mg/dL (74-106); Potassium 3.5 mmol/L (3.5-5.1); SGOT/AST 19 U/L (17-59); SGPT/ALT 8 U/L (0-50); SODIUM 138 mmol/L (137-145); Total Protein 4.8 g/dL (6.3-8.2)
[2022-10-19] MEDS: Sodium Chloride 0.9% 1000 ML 1,000 ML IV SCH ×3 (05:45→23:54)
--- NOTE | 2022-10-19 07:26 | PCM.NOTE ---
Date and Time: 10/19/22 0723 Subjective Assessment: This is a 72-year-old male with a hx of Parkinson disease, hypertension and has prostate issues.. He presented to ER on 10/18 with rectal bleeding described as multiple clots with multiple episodes of passage of these clots rectally starting at 4AM. He had another episode in the emergency department and then overnight again passing clots. Hgb is stable at 8.9 this AM and then 8.1 at noon. His vital signs are stable. Patient did have rectal bleeding back in 2020 requiring blood transfusion. Work-up was unable to determine the cause of that episode of rectal bleeding. Patient's last colonoscopy was 2016 and it showed benign polyps per patient report. He is not on any anticoagulation therapy. Ronda ent is not dizzy and denies any other sxs at this time [facility] was called and they are coming to see the pt today. They are going to start prepping him today and plan for EGD/ Colonoscopy unless needed sooner. he is also on a clear liquid diet for now. He had a difficult time getting clear last time he had a colonoscopy per pt. - Review of Systems Constitutional: No Fever, No Chills Eyes: No Symptoms Ears, Nose, & Throat: No Symptoms Respiratory: No Cough, No Short Of Breath Cardiac: No Chest Pain, No Edema, No Syncope Abdominal/Gastrointestinal: Hematochezia (with clots), No Abdominal Pain, No Nausea, No Vomiting, No Diarrhea Genitourinary Symptoms: No Dysuria Musculoskeletal: No Back Pain, No Neck Pain Skin: No Rash Neurological: No Dizziness, No Focal Weakness, No Sensory Changes Psychological: No Symptoms Endocrine: No Symptoms Hematologic/Lymphatic: No Symptoms Immunological/Allergic: No Symptoms Objective Exam General Appearance: no apparent distress, alert Neurologic Exam: alert, oriented x 3, cooperative, normal mood/affect, nml cerebellar function, sensation nml, No motor deficits Skin Exam: normal color, warm, dry Eye Exam: PERRL, EOMI, eyes nml inspection Ears, Nose, Throat Exam: normal ENT inspection, pharynx normal, moist mucous membranes Neck Exam: normal inspection, non-tender, supple, full range of motion Respiratory Exam: normal breath sounds, lungs clear, No respiratory distress Cardiovascular Exam: regular rate/rhythm, normal heart sounds Gastrointestinal/Abdomen Exam: soft, No tenderness, No mass Extremity Exam: normal inspection, normal range of motion Back Exam: normal inspection, normal range of motion, No CVA tenderness, No vertebral tenderness Male Genitalia Exam: deferred Rectal Exam: deferred OBJECTIVE DATA Vital Signs: Vital Signs - 24 hr Temp Pulse Resp BP BP Pulse Ox 10/19/22 07:19 95 10/19/22 06:43 97.7 F 70 16 121/60 95 10/19/22 04:00 97.3 F 74 16 101/56 98 10/19/22 00:00 97.1 F 88 16 105/57 94 L 10/18/22 21:43 98 10/18/22 21:00 101 H 94 L 10/18/22 19:56 97.1 F 83 16 119/56 94 L 10/18/22 19:00 83 19 97/63 95 10/18/22 18:31 84 19 90/60 95 10/18/22 18:00 85 21 114/79 91 L 10/18/22 17:30 81 19 96/64 96 10/18/22 17:09 78 17 117/55 98 10/18/22 17:00 61 25 H 117/55 98 10/18/22 16:30 101 H 18 97/67 95 10/18/22 16:00 88 19 108/76 97 10/18/22 15:20 114 H 20 122/77 98 10/18/22 14:48 97.0 F 94 H 18 114/77 94 L 10/18/22 14:25 73 114/77 94 L Pain Assessment - Last Documented Pain Intensity 0 Intake and Output: Intake & Output 10/16/22 10/17/22 10/18/22 10/19/22 11:59 11:59 11:59 11:59 Intake Total 1395 Output Total 250 Balance 1145 Weight 89.6 kg Lab Results: Lab Results-Last 24 Hours 10/18/22 10/18/22 10/18/22 Range/Units 15:06 15:06 15:06 WBC 6.7 (4.0-10.5) x10^3/uL RBC 4.52 (4.1-5.6) x10^6/uL Hgb 13.4 (12.5-18.0) g/dL Hct 42.1 (42-50) % MCV 93.1 (78-100) fL MCH 29.6 (26-32) pg MCHC 31.8 L (32-36) g/dL RDW 12.7 (11.5-14.0) % Plt Count 220 (150-450) x10^3/uL MPV 10.8 (7.5-11.0) fL Gran % 72.8 H (36.0-66.0) % Immature Gran % (Auto) 0.3 (0.00-0.4) % Nucleat RBC Rel Count 0.0 (0.00-0.1) % Eos # (Auto) 0.06 (0-0.5) x10^3/uL Immature Gran # (Auto) 0.02 (0.00-0.03) x10^3u/L Absolute Lymphs (auto) 1.16 (1.0-4.6) x10^3/uL Absolute Monos (auto) 0.54 (0.0-1.3) x10^3/uL Absolute Nucleated RBC 0.00 (0.00-0.01) x10^3u/L Lymphocytes % 17.3 L (24.0-44.0) % Monocytes % 8.1 (0.0-12.0) % Eosinophils % 0.9 (0.00-5.0) % Basophils % 0.6 (0.0-0.4) % Absolute Granulocytes 4.88 (1.4-6.9) x10^3/uL Basophils # 0.04 (0-0.4) x10^3/uL PT 10.9 (9.4-12.5) SECONDS INR 1.00 (0.8-3.0) Sodium 140 (137-145) mmol/L Potassium 4.1 (3.5-5.1) mmol/L Chloride 104 (98-107) mmol/L Carbon Dioxide 27 (22-30) mmol/L Anion Gap 12.3 (5-15) MEQ/L BUN 19 (9-20) mg/dL Creatinine 0.82 (0.66-1.25) mg/dL Estimated GFR > 60.0 ML/MIN Glucose 105 (74-106) mg/dL Calcium 8.7 (8.4-10.2) mg/dL Total Bilirubin 0.80 (0.2-1.3) mg/dL AST 25 (17-59) U/L ALT 11 (0-50) U/L Alkaline Phosphatase 73 (38-126) U/L Serum Total Protein 6.5 (6.3-8.2) g/dL Albumin 3.9 (3.5-5.0) g/dL Amylase (30-110) U/L Lipase (23-300) U/L Stl Occult Blood (IFOB) (NEGATIVE) ABO Group Rh Factor Antibody Screen (NEGATIVE) 10/18/22 10/18/22 10/18/22 Range/Units 15:06 16:00 16:31 WBC (4.0-10.5) x10^3/uL RBC (4.1-5.6) x10^6/uL Hgb (12.5-18.0) g/dL Hct (42-50) % MCV (78-100) fL MCH (26-32) pg MCHC (32-36) g/dL RDW (11.5-14.0) % Plt Count (150-450) x10^3/uL MPV (7.5-11.0) fL Gran % (36.0-66.0) % Immature Gran % (Auto) (0.00-0.4) % Nucleat RBC Rel Count (0.00-0.1) % Eos # (Auto) (0-0.5) x10^3/uL Immature Gran # (Auto) (0.00-0.03) x10^3u/L Absolute Lymphs (auto) (1.0-4.6) x10^3/uL Absolute Monos (auto) (0.0-1.3) x10^3/uL Absolute Nucleated RBC (0.00-0.01) x10^3u/L Lymphocytes % (24.0-44.0) % Monocytes % (0.0-12.0) % Eosinophils % (0.00-5.0) % Basophils % (0.0-0.4) % Absolute Granulocytes (1.4-6.9) x10^3/uL Basophils # (0-0.4) x10^3/uL PT (9.4-12.5) SECONDS INR (0.8-3.0) Sodium (137-145) mmol/L Potassium (3.5-5.1) mmol/L Chloride (98-107) mmol/L Carbon Dioxide (22-30) mmol/L Anion Gap (5-15) MEQ/L BUN (9-20) mg/dL Creatinine (0.66-1.25) mg/dL Estimated GFR ML/MIN Glucose (74-106) mg/dL Calcium (8.4-10.2) mg/dL Total Bilirubin (0.2-1.3) mg/dL AST (17-59) U/L ALT (0-50) U/L Alkaline Phosphatase (38-126) U/L Serum Total Protein (6.3-8.2) g/dL Albumin (3.5-5.0) g/dL Amylase < 30 L (30-110) U/L Lipase 162 (23-300) U/L Stl Occult Blood (IFOB) POSITIVE A (NEGATIVE) ABO Group A Rh Factor POSITIVE Antibody Screen NEGATIVE (NEGATIVE) 10/18/22 10/19/22 10/19/22 Range/Units 21:50 04:26 04:26 WBC 8.5 5.7 (4.0-10.5) x10^3/uL RBC 3.57 L 3.03 L (4.1-5.6) x10^6/uL Hgb 10.7 L D 8.9 L (12.5-18.0) g/dL Hct 33.7 L 28.2 L (42-50) % MCV 94.4 93.1 (78-100) fL MCH 30.0 29.4 (26-32) pg MCHC 31.8 L 31.6 L (32-36) g/dL RDW 12.8 13.0 (11.5-14.0) % Plt Count 206 170 (150-450) x10^3/uL MPV 10.6 10.8 (7.5-11.0) fL Gran % 78.9 H 62.0 (36.0-66.0) % Immature Gran % (Auto) 0.4 0.2 (0.00-0.4) % Nucleat RBC Rel Count 0.0 0.0 (0.00-0.1) % Eos # (Auto) 0.02 0.11 (0-0.5) x10^3/uL Immature Gran # (Auto) 0.03 0.01 (0.00-0.03) x10^3u/L Absolute Lymphs (auto) 1.20 1.42 (1.0-4.6) x10^3/uL Absolute Monos (auto) 0.49 0.60 (0.0-1.3) x10^3/uL Absolute Nucleated RBC 0.00 0.00 (0.00-0.01) x10^3u/L Lymphocytes % 14.2 L 24.9 (24.0-44.0) % Monocytes % 5.8 10.5 (0.0-12.0) % Eosinophils % 0.2 1.9 (0.00-5.0) % Basophils % 0.5 0.5 (0.0-0.4) % Absolute Granulocytes 6.70 3.54 (1.4-6.9) x10^3/uL Basophils # 0.04 0.03 (0-0.4) x10^3/uL PT (9.4-12.5) SECONDS INR (0.8-3.0) Sodium 138 (137-145) mmol/L Potassium 3.5 (3.5-5.1) mmol/L Chloride 108 H (98-107) mmol/L Carbon Dioxide 28 (22-30) mmol/L Anion Gap 5.9 (5-15) MEQ/L BUN 25 H (9-20) mg/dL Creatinine 0.74 (0.66-1.25) mg/dL Estimated GFR > 60.0 ML/MIN Glucose 92 (74-106) mg/dL Calcium 7.7 L (8.4-10.2) mg/dL Total Bilirubin 0.70 (0.2-1.3) mg/dL AST 19 (17-59) U/L ALT 8 (0-50) U/L Alkaline Phosphatase 51 (38-126) U/L Serum Total Protein 4.8 L (6.3-8.2) g/dL Albumin 2.7 L (3.5-5.0) g/dL Amylase (30-110) U/L Lipase (23-300) U/L Stl Occult Blood (IFOB) (NEGATIVE) ABO Group Rh Factor Antibody Screen (NEGATIVE) Radiology Exams: Radiology Procedures Category Date Time Status ABDOMEN AND PELVIS W/0 CONTRAS [CT] Stat Exams 10/18/22 14:28 Completed Assessment/Plan (1) Rectal bleeding Current Visit: Yes Status: Acute Code(s): K62.5 - HEMORRHAGE OF ANUS AND RECTUM (2) Hx of Parkinson's disease Current Visit: No Status: Acute Code(s): Z86.69 - PERSONAL HISTORY OF DIS OF THE NERVOUS SYS AND SENSE ORGANS (3) HTN (hypertension) Current Visit: Yes Status: Acute Code(s): I10 - ESSENTIAL (PRIMARY) HYPERTENSION (4) Anemia Current Visit: No Status: Acute Qualifiers: Anemia type: other cause Code(s): D64.9 - ANEMIA, UNSPECIFIED Telemedicine Encounter - Telemedicine Encounter Telemedicine Encounter: Telemedicine Encounter: 1. Rectal bleeding - ER physican consulting surgery for possible Colonoscopy - Hgb stable upon admission at 13.4 - recheck H& H at 1900 - CBC, CMP in AM - Protonix 40mg IV BID - IV fluids - NPO at midnight 10/19 - Clear liquid diet - bowl prep started today - plan is for EGD/ Colonoscopy per unless needed sooner 2. Anemia- - 2:2 rectal bleeding 10/19 -Hgb 8.9 this am and 8.1 at noon - H&H 3. Hx of parkinson's - Continue home meds - no current concerns 4. HTN-chronic - stable VTE: none PPI: Protonix POA: D/C plan: 2-3 days
[2022-10-19] MEDS: PROTONIX 40 MG IV IV SCH ×2 (08:15→21:32)
[2022-10-19] MEDS: PATIENT OWN MEDICATION PO SCH ×3 (08:16→21:32)
[2022-10-19] MEDS ORDERED: NON-FORMULARY ITEM PO SCH (10:00)
[2022-10-19] MEDS ORDERED: PATEINT INSURANCE PROVIDED MED PO SCH (10:00)
[2022-10-19 12:09] LABS: Hematocrit 25.6 % (42-50); Hemoglobin 8.1 g/dL (12.5-18.0)
[2022-10-19] MEDS ORDERED: TYLENOL 325 MG PO PRN (12:39)
[2022-10-19] MEDS ORDERED: Flonase NASAL NS PRN (12:39)
[2022-10-19] MEDS ORDERED: NON-FORMULARY ITEM (Carboxymethylcellulose Sodium [Thera Tears] 30 ML Drops) OP PRN (12:39)
[2022-10-19] MEDS ORDERED: NORCO 7.5/325 MG TAB PO PRN (12:39)
[2022-10-19] MEDS ORDERED: Artificial Tears 15 ML OP PRN (12:54)
[2022-10-19] MEDS ORDERED: MEDICATION INTERVENTION MC SCH (13:00)
[2022-10-19] MEDS: Zetia 10 MG PO SCH (13:23)
[2022-10-19] MEDS: NORVASC 5 MG PO SCH (13:23)
[2022-10-19] MEDS: Flomax 0.4 MG PO SCH ×2 (13:23→21:32)
[2022-10-19] MEDS ORDERED: Golytely Solution 4000 ML PO ONE (14:00)
[2022-10-19] MEDS ORDERED: CARBIDOPA PO SCH (15:00)
[2022-10-19] MEDS ORDERED: [UNRECOGNIZED DRUG - OTHER] PO SCH (15:00)
[2022-10-19] MEDS ORDERED: LEVODOPA PO SCH (15:00)
[2022-10-19 19:30] LABS: Hematocrit 26.6 % (42-50); Hemoglobin 8.4 g/dL (12.5-18.0)
[2022-10-19] MEDS ORDERED: Calcium Gluconate 10% 1000 MG IV ONE (19:45)
--- NOTE | 2022-10-19 19:55 | PCM.CONS ---
History of Present Illness - Reason for Consult Chief Complaint: GI Bleed Requesting Provider: KAREN VILLEDA MD Consulting Provider: MELISSA MENA MD History of Present Illness: is a 72 year old male. hx per chart review and d/.w pt and fam. 2020 did have anemia requiring a few pints of blood. did get c scope but there was poor prep at that time with andreas. no issues since that time. 8/14 am with [facility]. multiple bloody stools yesterday and in the ED. hgb 13. HDS. ct without contrast unremarkable tics. overnight only had 1 bm looked darker. today had 2-3 bloody bm with clot but that was after starting prep. no n/v. no abd pain. no anal pain. denies abd surgery. This is a 72-year-old white male who is on multiple medications to treat Parkinson disease and presents with rectal bleeding described as multiple clots with multiple episodes of passage of these clots rectally since this morning. He had another episode here in the emergency department. Patient is not dizzy. His vital signs are stable. He is not on any anticoagulation therapy. He has a history of hypertension and has prostate issues. Patient did have rectal bleeding back in 2020 requiring blood transfusion. Work-up was unable to dete rmine the cause of that episode of rectal bleeding. Patient's last colonoscopy was 2016 and it showed benign polyps per patient report. Additional, independent history was obtained from the patient's spouse. Patient has no abdominal pain. He has no shortness of breath. He has no chest pain. He is not on any anticoagulation therapy. Timing/Duration: today Activities at Onset: none Severity of Pain-Max: none Severity of Pain-Current: none Modifying Factors: Improves With: nothing Associated Symptoms: denies symptoms Previous symptoms: same symptoms as today (Back in 2020), no recent treatment Allergies/Adverse Reactions: cyclobenzaprine [From Flexeril] Adverse Reaction (Severe, Verified 10/18/22 14:23) Hallucinations. Pt and report that it interacted with his parkinsons disease. Home Medications: Amlodipine Besylate 10 mg [Norvasc 10 MG] 10 mg PO DAILY 07/09/16 [History] Rasagiline Mesylate [Azilect] 1 mg PO DAILY 07/09/16 [History] Tamsulosin HCl 0.4 mg [Flomax 0.4 MG] 0.4 mg PO DAILY 07/09/16 [History] Acetaminophen 325 mg [Tylenol 325 mg] 650 mg PO Q4H PRN 11/06/20 [History] Carbidopa/Levodopa [Rytary ER 23.75 mg-95 mg Cap] 4 cap PO TID 11/06/20 [History] Diclofenac Sodium Gel [Voltaren GEL] 2 gm TP Q8H PRN 11/06/20 [History] Entacapone 200 mg PO QID 11/06/20 [History] Hydrocodone/Acetaminophen [Hydrocodon-Acetaminophn 10-325] 1 each PO Q8H PRN 11/06/20 [History] Metoprolol Succinate 25 mg Xl* [Toprol-Xl 25MG Tablets] 25 mg PO DAILY 11/06/20 [History] Vit A/Vit C/Vit E/Zinc/Copper [Preservision Areds Tablet] 2 cap PO DAILY 11/06/20 [History] Cyanocobalamin 1000 Mcg/ml [Cyanocobalamin B-12 1000 MCG/ML] 1,000 mcg IJ UD 11/24/20 [History] Menthol [Biofreeze] 118 ml TP Q4-6HPRN PRN 11/24/20 [History] Rivaroxaban [Xarelto] 20 mg PO DAILY 11/24/20 [History] Rotigotine [Neupro] 1 each TD DAILY 11/24/20 [History] Vit C/E/Zn/Coppr/Lutein/Zeaxan [Preservision Areds 2 Softgel] 2 tab PO DAILY 11/24/20 [History] risperiDONE [Risperdal] 0.5 mg PO HS 11/24/20 [History] Hx Tetanus, Diphtheria Vaccination/Date Given: Yes Hx Influenza Vaccination/Date Given: Yes Hx Pneumococcal Vaccination/Date Given: Yes Travel Risk - International Travel Have you traveled outside of the country in past 3 weeks: No - Coronavirus Screening Are you exhibiting any of the following symptoms?: No Close contact with a COVID-19 positive Pt in past 14-21 Days: No - Vaccine Status Have you recieved a Covid-19 vaccination: No 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 - Vaccination Dates Dates if Unknown: unknown - Review of Systems Constitutional: No Symptoms Eyes: No Symptoms Ears, Nose, & Throat: No Symptoms Respiratory: No Symptoms Cardiac: No Symptoms Abdominal/Gastrointestinal: Hematochezia, Melena Genitourinary Symptoms: No Symptoms Musculoskeletal: No Symptoms Skin: No Symptoms Neurological: No Symptoms Psychological: No Symptoms Endocrine: No Symptoms Hematologic/Lymphatic: No Symptoms Immunological/Allergic: No Symptoms All Other Systems: Reviewed and Negative - Past Medical History Pertinent Past Medical History: Yes Neurological History: Other ENT History: No Pertinent History Cardiac History: High Cholesterol, Hypertension, Other Respiratory History: No Pertinent History Endocrine Medical History: No Pertinent History Musculoskeletal History: Degenerative Disk Disease, Osteoarthritis, Other GI Medical History: GERD History: No Pertinent History Psycho-Social History: No Pertinent History Male Reproductive Disorders: Prostate Problems Other Medical History: PARKINSON'S DZ DX'ED 2014; PT. HAS AIDE'T 06/25/22 W/ TEMPLE MARKER; PT. DX'ED W/ ARRYTHMIA. R WINIFRED 2006 - Past Surgical History Past Surgical History: Yes Neuro Surgical History: No Pertinent History Cardiac: No Pertinent History Respiratory: No Pertinent History Gastrointestinal: No Pertinent History Genitourinary: No Pertinent History Musculoskeletal: Joint Replacement, Other Male Surgical History: Other Other Surgical History: sinus surgery,right hip replacement. spinal fusion - Social History Smoking Status: Former smoker How long have you smoked: 10 yrs Exposure to second hand smoke: No Drug Use: none Patient Lives Alone: No ([facility] Cathy Toro) Medications & Allergies Home Medications: Home Medication List Amlodipine Besylate 10 mg [Norvasc 10 MG] 10 mg PO DAILY 07/09/16 [History Confirmed 10/19/22] Tamsulosin HCl 0.4 mg [Flomax 0.4 MG] 0.4 mg PO BID 07/09/16 [History Confirmed 10/19/22] Carbidopa/Levodopa [Rytary ER 36.25 mg-145 mg Cap] 3 cap PO TID 10/18/22 [History Confirmed 10/18/22] Cyanocobalamin (Vitamin B-12) [Cyanocobalamin Injection] 1 ml IJ UD 10/18/22 [History Confirmed 10/18/22] Diclofenac Sodium [Voltaren Arthritis Pain] 2 gm TOP DAILY PRN PRN 10/18/22 [History Confirmed 10/18/22] Ezetimibe 10 mg [Zetia 10 MG] 10 mg PO DAILY 10/18/22 [History Confirmed 10/18/22] Fluticasone Propionate [Flonase NASAL] 1 spray IN DAILY PRN PRN 10/18/22 [History Confirmed 10/18/22] Hydrocodone/Acetaminophen [Hydrocodone-Acetamin 7.5-325] 1 tab PO BIDPRN PRN 10/18/22 [History Confirmed 10/19/22] Lifitegrast [Xiidra] 1 drop DROPS BID 10/18/22 [History Confirmed 10/18/22] Pantoprazole 20 mg [Protonix 20MG Tablet] 20 mg PO DAILY 10/18/22 [History Confirmed 10/19/22] Acetaminophen 325 mg [Tylenol 325 mg] 325 mg PO Q4HPRN PRN 10/19/22 [History Confirmed 10/19/22] Carboxymethylcellulose Sodium [Thera Tears] 1 drop OP Q4H PRN PRN 10/19/22 [History Confirmed 10/19/22] Allergies/Adverse Reactions: Allergies Allergy/AdvReac Type Severity Reaction Status Date / Time cyclobenzaprine AdvReac Severe Verified 10/18/22 14:23 [[facility] - Past Medical History Past Medical History: Yes Neurological History: Other ENT History: Cataracts Cardiac History: High Cholesterol, Hypertension Respiratory History: No Pertinent History Endocrine Medical History: No Pertinent History Musculoskelatal History: Degenerative Disk Disease, Osteoarthritis GI Medical History: GERD History: No Pertinent History Pyscho-Social History: No Pertinent History Male Reproductive Disorders: Prostate Problems Comment: PARKINSON'S DZ DX'ED 2014; PT. HAS AIDE'T 06/25/22 W/ TEMPLE MARKER; PT. DX'ED W/ ARRYTHMIA. R hip replacement in 2006. R WINIFRED 2006 - Past Surgical History Past Surgical History: Yes Neuro Surgical History: No Pertinent History Cardiac History: No Pertinent History Respiratory Surgery: No Pertinent History GI Surgical History: No Pertinent History Genitourinary Surgical Hx: No Pertinent History Musculskeletal Surgical Hx: Joint Replacement, Other Male Surgical History: Other Other Surgical History: sinus surgery,right hip replacement. spinal fusion - Social History Smoking Status: Former smoker How long have you smoked: 10 yrs Exposure to second hand smoke: No Alcohol: None Drug Use: none - Physical Exam Vital Signs: Vital Signs - 24 hr Temp Pulse Resp BP Pulse Ox 10/19/22 18:50 93 L 10/19/22 16:00 98.2 F 81 17 123/60 95 10/19/22 11:32 97.6 F 85 16 126/58 94 L 10/19/22 07:19 95 10/19/22 06:43 97.7 F 70 16 121/60 95 10/19/22 04:00 97.3 F 74 16 101/56 98 10/19/22 00:00 97.1 F 88 16 105/57 94 L 10/18/22 21:43 98 10/18/22 21:00 101 H 94 L 10/18/22 19:56 97.1 F 83 16 119/56 94 L General Appearance: No mild distress Neurologic Exam: alert, oriented x 3 Eye Exam: other (pale conjunctiva) Neck Exam: normal inspection Respiratory Exam: No respiratory distress, No accessory muscle use Cardiovascular Exam: regular rate/rhythm Gastrointestinal/Abdomen Exam: soft, No tenderness, No distention, No mass Rectal Exam: other (normal external some scant melanotic appear smear on depends) Extremity Exam: normal inspection Results - Labs Lab/Micro Results: Lab Results-Last 24 Hours 10/18/22 10/19/22 10/19/22 Range/Units 21:50 04:26 04:26 WBC 8.5 5.7 (4.0-10.5) x10^3/uL RBC 3.57 L 3.03 L (4.1-5.6) x10^6/uL Hgb 10.7 L D 8.9 L (12.5-18.0) g/dL Hct 33.7 L 28.2 L (42-50) % MCV 94.4 93.1 (78-100) fL MCH 30.0 29.4 (26-32) pg MCHC 31.8 L 31.6 L (32-36) g/dL RDW 12.8 13.0 (11.5-14.0) % Plt Count 206 170 (150-450) x10^3/uL MPV 10.6 10.8 (7.5-11.0) fL Gran % 78.9 H 62.0 (36.0-66.0) % Immature Gran % (Auto) 0.4 0.2 (0.00-0.4) % Nucleat RBC Rel Count 0.0 0.0 (0.00-0.1) % Eos # (Auto) 0.02 0.11 (0-0.5) x10^3/uL Immature Gran # (Auto) 0.03 0.01 (0.00-0.03) x10^3u/L Absolute Lymphs (auto) 1.20 1.42 (1.0-4.6) x10^3/uL Absolute Monos (auto) 0.49 0.60 (0.0-1.3) x10^3/uL Absolute Nucleated RBC 0.00 0.00 (0.00-0.01) x10^3u/L Lymphocytes % 14.2 L 24.9 (24.0-44.0) % Monocytes % 5.8 10.5 (0.0-12.0) % Eosinophils % 0.2 1.9 (0.00-5.0) % Basophils % 0.5 0.5 (0.0-0.4) % Absolute Granulocytes 6.70 3.54 (1.4-6.9) x10^3/uL Basophils # 0.04 0.03 (0-0.4) x10^3/uL Sodium 138 (137-145) mmol/L Potassium 3.5 (3.5-5.1) mmol/L Chloride 108 H (98-107) mmol/L Carbon Dioxide 28 (22-30) mmol/L Anion Gap 5.9 (5-15) MEQ/L BUN 25 H (9-20) mg/dL Creatinine 0.74 (0.66-1.25) mg/dL Estimated GFR > 60.0 ML/MIN Glucose 92 (74-106) mg/dL Calcium 7.7 L (8.4-10.2) mg/dL Total Bilirubin 0.70 (0.2-1.3) mg/dL AST 19 (17-59) U/L ALT 8 (0-50) U/L Alkaline Phosphatase 51 (38-126) U/L Serum Total Protein 4.8 L (6.3-8.2) g/dL Albumin 2.7 L (3.5-5.0) g/dL 10/19/22 10/19/22 Range/Units 12:07 19:28 WBC (4.0-10.5) x10^3/uL RBC (4.1-5.6) x10^6/uL Hgb 8.1 L 8.4 L (12.5-18.0) g/dL Hct 25.6 L 26.6 L (42-50) % MCV (78-100) fL MCH (26-32) pg MCHC (32-36) g/dL RDW (11.5-14.0) % Plt Count (150-450) x10^3/uL MPV (7.5-11.0) fL Gran % (36.0-66.0) % Immature Gran % (Auto) (0.00-0.4) % Nucleat RBC Rel Count (0.00-0.1) % Eos # (Auto) (0-0.5) x10^3/uL Immature Gran # (Auto) (0.00-0.03) x10^3u/L Absolute Lymphs (auto) (1.0-4.6) x10^3/uL Absolute Monos (auto) (0.0-1.3) x10^3/uL Absolute Nucleated RBC (0.00-0.01) x10^3u/L Lymphocytes % (24.0-44.0) % Monocytes % (0.0-12.0) % Eosinophils % (0.00-5.0) % Basophils % (0.0-0.4) % Absolute Granulocytes (1.4-6.9) x10^3/uL Basophils # (0-0.4) x10^3/uL Sodium (137-145) mmol/L Potassium (3.5-5.1) mmol/L Chloride (98-107) mmol/L Carbon Dioxide (22-30) mmol/L Anion Gap (5-15) MEQ/L BUN (9-20) mg/dL Creatinine (0.66-1.25) mg/dL Estimated GFR ML/MIN Glucose (74-106) mg/dL Calcium (8.4-10.2) mg/dL Total Bilirubin (0.2-1.3) mg/dL AST (17-59) U/L ALT (0-50) U/L Alkaline Phosphatase (38-126) U/L Serum Total Protein (6.3-8.2) g/dL Albumin (3.5-5.0) g/dL - Radiology Impressions Radiology Exams & Impressions: Radiology Procedures Category Date Time Status ABDOMEN AND PELVIS W/0 CONTRAS [CT] Stat Exams 10/18/22 14:28 Completed Assessment/Plan (1) Rectal bleeding Current Visit: Yes Status: Acute Assessment & Plan: 72yo male with GIB. about 5g drop in hgb. plateaued at aroun 8.5. hds today. having some additional dark stools but unclear if this is just old blood from cleanout. -continue with bowel prep. -continue PPI BID. -unsure if we will do egd cscope 10/20 or 10/21. -notify me with any concern of active ongoing bleed/significant hgb drop as we would immediately scope and not wait on prep. the patient denied thinners but his list from 2020 has xarelto we will check with pt and family to confirm he really isnt taking that Code(s): K62.5 - HEMORRHAGE OF ANUS AND RECTUM
[2022-10-19] MEDS ORDERED: LIFITEGRAST DROPS SCH (22:00)
[2022-10-19] MEDS ORDERED: Zofran 4 MG/2 ML VIAL IV PRN (22:35)
[2022-10-20 03:31] LABS: Hemoglobin 6.6 g/dL (12.5-18.0)
[2022-10-20 04:55] LABS: CROSS MATCH (PRBC) COMPATIBLE (COMPATIBLE)
[2022-10-20] MEDS: Sodium Chloride 0.9% 1000 ML 1,000 ML IV SCH (05:00)
[2022-10-20 07:54] LABS: Hematocrit 21.9 % (42-50); Hemoglobin 7.1 g/dL (12.5-18.0); Mean Cell Volume 92.8 fL (78-100); Mean Corpuscular Hemoglobin 30.1 pg (26-32); Mean Corpuscular Hgb Concent. 32.4 g/dL (32-36); Mean Platelet Volume 10.5 fL (7.5-11.0); Platelet Count 142 x10^3/uL (150-450); Red Blood Count 2.36 x10^6/uL (4.1-5.6); Red Cell Distribution Width 13.2 % (11.5-14.0); White Blood Count 6.1 x10^3/uL (4.0-10.5)
[2022-10-20 08:08] LABS: ALBUMIN 2.5 g/dL (3.5-5.0); ALKALINE PHOSPHATASE 49 U/L (38-126); ANION GAP 7.8 MEQ/L (5-15); BLOOD UREA NITROGEN 18 mg/dL (9-20); CHLORIDE 110 mmol/L (98-107); Calcium 7.3 mg/dL (8.4-10.2); Carbon Dioxide 26 mmol/L (22-30); Creatinine 1 0.69 mg/dL (0.66-1.25); EST GLOMERULAR FILTRATION RATE > 60.0 ML/MIN; Glucose 91 mg/dL (74-106); Potassium 3.6 mmol/L (3.5-5.1); SGOT/AST 25 U/L (17-59); SGPT/ALT 14 U/L (0-50); SODIUM 140 mmol/L (137-145); Total Protein 4.4 g/dL (6.3-8.2)
[2022-10-20 08:52] LABS: Hematocrit 22.6 % (42-50); Hemoglobin 7.2 g/dL (12.5-18.0)
[2022-10-20] MEDS ORDERED: NON-FORMULARY ITEM (Amlodipine Besylate 10 Mg [Norvasc 10 Mg] 10 MG Tablet) PO SCH (10:00)
[2022-10-20 10:56] LABS: CROSS MATCH (PRBC) COMPATIBLE (COMPATIBLE)
[2022-10-20 11:22] LABS: Hematocrit 21.1 % (42-50)
[2022-10-20 11:26] LABS: Hemoglobin 6.7 g/dL (12.5-18.0)
[2022-10-20] MEDS: PATIENT OWN MEDICATION PO SCH ×3 (11:28→22:39)
[2022-10-20] MEDS: Flomax 0.4 MG PO SCH ×2 (11:28→22:39)
[2022-10-20] MEDS: PROTONIX 40 MG IV IV SCH ×2 (11:28→22:39)
[2022-10-20] MEDS: Zetia 10 MG PO SCH (11:28)
[2022-10-20] MEDS: NORVASC 5 MG PO SCH (11:47)
--- NOTE | 2022-10-20 11:58 | XRAY ---
Indication: GI bleed. Conventional contrast enhanced CTA abdomen/pelvis performed using 80 cc Isovue 370 contrast. 2-D sagittal and coronal reformatted images obtained. Additional 3-D reformatted images obtained using a separate workstation. Comparison: Noncontrast exam October 18, 2022. Again beam artifact from bilateral L3-L5 fusion hardware and right hip arthroplasty. Aorta again mildly arteriosclerotic with stable 4.3 x 4.3 distal AAA. AAA is approximately 5 cm in CC dimension. Negative for dissection. Widely patent branching celiac, superior mesenteric, and inferior mesenteric arteries. A single left renal and 2 right main renal arteries. Minimal punctate arteriosclerotic calcification proximal right superior main renal artery without critical stenosis/obstruction. Stable mild scattered biiliac arteriosclerotic calcifications without aneurysm/dissection. Noncontrasted stomach and bowel loops are nonobstructed. Appendix not visualized. There remains mild diffuse colonic and rectal diarrhea, less than before. No free fluid/air. Both kidneys enhance and excrete with stable bilateral renal cysts again largest right mid upper pole measuring 8.4 cm. Again incidental fatty liver, tiny gas-filled gallstones, and tiny hepatic/splenic calcified granulomas. Remaining pancreas, adrenal glands, kidneys, ureters, and bladder are unremarkable. No pathologic retroperitoneal lymphadenopathy. Lung bases demonstrates minimal dependent atelectasis with stable tiny right lower lobe calcified granuloma. Heart not enlarged. Osseous structures intact again with osteopenia, moderate multilevel thoracolumbar degenerative spondylosis, mild dextroscoliosis, and mild left hip degenerative arthropathy. Lung bases now demonstrates minimal dependent atelectasis. Impression: 1. Again beam artifact from L4-L5 fusion hardware and right hip arthroplasty. 2. CTA abdomen/pelvis again demonstrates mild arteriosclerotic disease with distal AAA detailed above. 3. Again chronic findings including gas-filled gallstones, bilateral renal cysts, fatty liver, chronic bony findings, and old granulomatous disease.
[2022-10-20] MEDS ORDERED: Lactated Ringers 1,000 ML IV SCH (14:00)
--- NOTE | 2022-10-20 14:16 | PCM.NOTE ---
Date and Time: 10/20/22 1411 Subjective Assessment: This is a 72-year-old male with a hx of Parkinson disease, hypertension and has prostate issues.. He presented to ER on 10/18 with rectal bleeding described as multiple clots with multiple episodes of passage of these clots rectally starting at 4AM. He had another episode in the emergency department and then overnight again passing clots. Hgb when came into ER was 10.7. Patient did have rectal bleeding back in 2020 requiring blood transfusion. Work-up was unable to determine the cause of that episode of rectal bleeding. Patient's last colonoscopy was 2016 and it showed benign polyps per patient report. He is not on any anticoagulation therapy. He had a difficult time getting clear last time he had a colonoscopy per pt. Hgb dropped to 6.6 last night and blood was ordered by GS. Plan is for scope today around 3 pm. Pt continues to try bowel prep which was started yesterday. Hgb again dropped at 11:00 and blood ordered by GS. GS aware of ongoing bleeding with clots. Pt feels he is getting weaker today. Pt denies CP, SOB, abd. pain. - Review of Systems Constitutional: Weakness, No Fever, No Chills Eyes: No Symptoms Ears, Nose, & Throat: No Symptoms Respiratory: No Cough, No Short Of Breath Cardiac: No Chest Pain, No Edema, No Syncope Abdominal/Gastrointestinal: Hematochezia, No Abdominal Pain, No Nausea, No Vomiting, No Diarrhea Genitourinary Symptoms: No Dysuria Musculoskeletal: No Back Pain, No Neck Pain Skin: No Rash Neurological: No Dizziness, No Focal Weakness, No Sensory Changes Psychological: No Symptoms Endocrine: No Symptoms Hematologic/Lymphatic: No Symptoms Immunological/Allergic: No Symptoms Objective Exam General Appearance: no apparent distress, alert Neurologic Exam: alert, oriented x 3, cooperative, normal mood/affect, nml cerebellar function, sensation nml, No motor deficits Skin Exam: normal color, warm, dry Eye Exam: PERRL, EOMI, eyes nml inspection Ears, Nose, Throat Exam: normal ENT inspection, pharynx normal, moist mucous membranes Neck Exam: normal inspection, non-tender, supple, full range of motion Respiratory Exam: normal breath sounds, lungs clear, No respiratory distress Cardiovascular Exam: regular rate/rhythm, normal heart sounds Gastrointestinal/Abdomen Exam: soft, No tenderness, No mass Extremity Exam: normal inspection, normal range of motion Back Exam: normal inspection, normal range of motion, No CVA tenderness, No vertebral tenderness Male Genitalia Exam: deferred Rectal Exam: deferred OBJECTIVE DATA Vital Signs: Vital Signs - 24 hr Temp Pulse Resp BP Pulse Ox 10/20/22 13:57 98.1 F 94 H 20 140/63 91 L 10/20/22 11:41 98.1 F 94 H 20 140/63 91 L 10/20/22 07:23 98.1 F 91 H 20 127/59 94 L 10/20/22 04:00 97.6 F 100 H 20 129/59 92 L 10/19/22 23:46 97.7 F 89 16 105/53 93 L 10/19/22 19:50 97.5 F 72 20 120/58 98 10/19/22 18:50 93 L 10/19/22 16:00 98.2 F 81 17 123/60 95 Pain Assessment - Last Documented Pain Intensity 0 Intake and Output: Intake & Output 10/18/22 10/19/22 10/20/22 10/21/22 11:59 11:59 11:59 11:59 Intake Total 1395 6339 0 Output Total 550 1550 550 Balance 845 4789 -550 Weight 89.6 kg 89.6 kg Lab Results: Lab Results-Last 24 Hours 10/19/22 10/20/22 10/20/22 Range/Units 19:28 02:20 03:23 WBC (4.0-10.5) x10^3/uL RBC (4.1-5.6) x10^6/uL Hgb 8.4 L 6.6 L* D (12.5-18.0) g/dL Hct 26.6 L 21.0 L (42-50) % MCV (78-100) fL MCH (26-32) pg MCHC (32-36) g/dL RDW (11.5-14.0) % Plt Count (150-450) x10^3/uL MPV (7.5-11.0) fL Sodium (137-145) mmol/L Potassium (3.5-5.1) mmol/L Chloride (98-107) mmol/L Carbon Dioxide (22-30) mmol/L Anion Gap (5-15) MEQ/L BUN (9-20) mg/dL Creatinine (0.66-1.25) mg/dL Estimated GFR ML/MIN Glucose (74-106) mg/dL Calcium (8.4-10.2) mg/dL Total Bilirubin (0.2-1.3) mg/dL AST (17-59) U/L ALT (0-50) U/L Alkaline Phosphatase (38-126) U/L Serum Total Protein (6.3-8.2) g/dL Albumin (3.5-5.0) g/dL Crossmatch COMPATIBLE (COMPATIBLE) 10/20/22 10/20/22 10/20/22 Range/Units 07:48 07:48 08:45 WBC 6.1 (4.0-10.5) x10^3/uL RBC 2.36 L (4.1-5.6) x10^6/uL Hgb 7.1 L 7.2 L (12.5-18.0) g/dL Hct 21.9 L 22.6 L (42-50) % MCV 92.8 (78-100) fL MCH 30.1 (26-32) pg MCHC 32.4 (32-36) g/dL RDW 13.2 (11.5-14.0) % Plt Count 142 L (150-450) x10^3/uL MPV 10.5 (7.5-11.0) fL Sodium 140 (137-145) mmol/L Potassium 3.6 (3.5-5.1) mmol/L Chloride 110 H (98-107) mmol/L Carbon Dioxide 26 (22-30) mmol/L Anion Gap 7.8 (5-15) MEQ/L BUN 18 (9-20) mg/dL Creatinine 0.69 (0.66-1.25) mg/dL Estimated GFR > 60.0 ML/MIN Glucose 91 (74-106) mg/dL Calcium 7.3 L (8.4-10.2) mg/dL Total Bilirubin 0.50 (0.2-1.3) mg/dL AST 25 (17-59) U/L ALT 14 (0-50) U/L Alkaline Phosphatase 49 (38-126) U/L Serum Total Protein 4.4 L (6.3-8.2) g/dL Albumin 2.5 L (3.5-5.0) g/dL Crossmatch (COMPATIBLE) 10/20/22 10/20/22 Range/Units 11:19 Unknown WBC (4.0-10.5) x10^3/uL RBC (4.1-5.6) x10^6/uL Hgb 6.7 L* (12.5-18.0) g/dL Hct 21.1 L (42-50) % MCV (78-100) fL MCH (26-32) pg MCHC (32-36) g/dL RDW (11.5-14.0) % Plt Count (150-450) x10^3/uL MPV (7.5-11.0) fL Sodium (137-145) mmol/L Potassium (3.5-5.1) mmol/L Chloride (98-107) mmol/L Carbon Dioxide (22-30) mmol/L Anion Gap (5-15) MEQ/L BUN (9-20) mg/dL Creatinine (0.66-1.25) mg/dL Estimated GFR ML/MIN Glucose (74-106) mg/dL Calcium (8.4-10.2) mg/dL Total Bilirubin (0.2-1.3) mg/dL AST (17-59) U/L ALT (0-50) U/L Alkaline Phosphatase (38-126) U/L Serum Total Protein (6.3-8.2) g/dL Albumin (3.5-5.0) g/dL Crossmatch COMPATIBLE (COMPATIBLE) Radiology Exams: Radiology Procedures Category Date Time Status ABDOMEN AND PELVIS W/0 CONTRAS [CT] Stat Exams 10/18/22 14:28 Completed CTA ABD/PEL W AND/OR W/O CONTR [CT] Stat Exams 10/20/22 10:20 Completed Multi-Disciplinary Progress Notes: Multi-Disciplinary Progress Notes 10/20/22 13:24 Case Management Note by Vicky Thacker S/W PATIENT- HE CONTINUES TO DENY ANY NEW NEEDS AT TIME OF DC. HE PLANS TO RETURN HOME TO HIS PLF AT TIME OF DC Initialized on 10/20/22 13:24 - END OF NOTE Assessment/Plan (1) Rectal bleeding Current Visit: Yes Status: Acute Assessment & Plan: - ER physican consulting surgery for possible Colonoscopy - Hgb stable upon admission at 13.4 - recheck H& H at 1900 - CBC, CMP in AM - Protonix 40mg IV BID - IV fluids - NPO at midnight 10/19 - Clear liquid diet - bowl prep started today - plan is for EGD/ Colonoscopy per GS unless needed sooner 10/20 - Continue bowel prep - Pt received several units of PRBC today. - H&H Q 8 - Reviewed GS note and agree with plan - plan is to take pt to OR today for scope Code(s): K62.5 - HEMORRHAGE OF ANUS AND RECTUM (2) Hx of Parkinson's disease Current Visit: No Status: Acute Assessment & Plan: - Continue home meds - no current concerns Code(s): Z86.69 - PERSONAL HISTORY OF DIS OF THE NERVOUS SYS AND SENSE ORGANS (3) HTN (hypertension) Current Visit: Yes Status: Acute Assessment & Plan: - stable Code(s): I10 - ESSENTIAL (PRIMARY) HYPERTENSION (4) Anemia Current Visit: No Status: Acute Qualifiers: Anemia type: other cause Other causes of anemia: acute posthemorrhagic Qualified Code(s): D62 - Acute posthemorrhagic anemia Assessment & Plan: - 2:2 rectal bleeding 10/19 -Hgb 8.9 this am and 8.1 at noon - H&H Q8 10/20 - Hgb 6.6 at 3:30 AM- 1 unit ordered by GS - Hgb 6.7 at 11:19 2 units orderd by GS - Continue to trend VTE: none PPI: Protonix POA: D/C plan: 1-2 days Code(s): D64.9 - ANEMIA, UNSPECIFIED
[2022-10-20 16:27] LABS: Hematocrit 23.1 % (42-50); Hemoglobin 7.4 g/dL (12.5-18.0)
[2022-10-20] MEDS ORDERED: DIPRIVAN 200 MG/20 ML IV ONE ×4 (16:33→18:01)
[2022-10-20] MEDS ORDERED: Xylocaine-Mpf 2% 5 Ml Vial ONE (16:33)
[2022-10-20] MEDS ORDERED: GlucaGen 1 MG ONE (17:24)
[2022-10-20] MEDS ORDERED: Lactated Ringers 1,000 ML IV ONE (17:44)
[2022-10-20] MEDS ORDERED: ATROPINE SULFATE 1MG ONE (18:17)
[2022-10-21 01:15] LABS: Hematocrit 22.4 % (42-50); Hemoglobin 7.2 g/dL (12.5-18.0)
[2022-10-21 01:42] LABS: ANION GAP 8.2 MEQ/L (5-15); BLOOD UREA NITROGEN 9 mg/dL (9-20); CHLORIDE 106 mmol/L (98-107); Calcium 7.9 mg/dL (8.4-10.2); Carbon Dioxide 30 mmol/L (22-30); Creatinine 1 0.66 mg/dL (0.66-1.25); EST GLOMERULAR FILTRATION RATE > 60.0 ML/MIN; Glucose 88 mg/dL (74-106); Potassium 3.3 mmol/L (3.5-5.1); SODIUM 141 mmol/L (137-145)
[2022-10-21] MEDS: POTASSIUM CHLORIDE 20 mEq IN WATER 100ML 20 MEQ/100 ML BAG IV SCH ×2 (02:05→03:42)
[2022-10-21] MEDS: Sodium Chloride 0.9% 1000 ML 1,000 ML IV SCH ×2 (03:48→10:22)
[2022-10-21 04:32] LABS: Hematocrit 25.3 % (42-50); Mean Cell Volume 93.4 fL (78-100); Mean Corpuscular Hemoglobin 29.5 pg (26-32); Mean Corpuscular Hgb Concent. 31.6 g/dL (32-36); Mean Platelet Volume 11.2 fL (7.5-11.0); Platelet Count 177 x10^3/uL (150-450); Red Blood Count 2.71 x10^6/uL (4.1-5.6); Red Cell Distribution Width 14.8 % (11.5-14.0); White Blood Count 7.3 x10^3/uL (4.0-10.5)
[2022-10-21 04:43] LABS: ALBUMIN 3.1 g/dL (3.5-5.0); ALKALINE PHOSPHATASE 62 U/L (38-126); ANION GAP 8.3 MEQ/L (5-15); BLOOD UREA NITROGEN 7 mg/dL (9-20); CHLORIDE 106 mmol/L (98-107); Carbon Dioxide 30 mmol/L (22-30); Creatinine 1 0.63 mg/dL (0.66-1.25); EST GLOMERULAR FILTRATION RATE > 60.0 ML/MIN; Glucose 86 mg/dL (74-106); Potassium 3.4 mmol/L (3.5-5.1); SGOT/AST 34 U/L (17-59); SGPT/ALT 7 U/L (0-50); SODIUM 141 mmol/L (137-145); Total Protein 5.4 g/dL (6.3-8.2)
[2022-10-21 07:18] VITALS: RESP 16
--- NOTE | 2022-10-21 07:48 | OP ---
SURGERY DATE/TIME: 10/20/2022 0593 PREOPERATIVE DIAGNOSIS: GI bleed. POSTOPERATIVE DIAGNOSES: 1) Totally normal upper endoscopic examination. 2) Broad looking from the anus to cecum old blood but no specific bleeding site and no specific pathology. PROCEDURES: 1) EGD. 2) Colonoscopy complete to cecum with wash out. SURGEON: Ray Larson M.D. ANESTHESIA: General. COMPLICATIONS: None. CONDITION: Stable. DESCRIPTION OF PROCEDURE: The patient was taken to endoscopy. Left lateral decubitus position. Scope introduced. Pharyngoesophageal junction normal. Esophagus normal. Gastroesophageal junction normal. Fundus, body and antrum normal. Pylorus normal. Duodenal bulb normal. Second portion normal. Scope looped upon itself normal from below. There was no blood new or old the exam. Completely normal upper endoscopic examination. From the scope in the anus there was old blood. The old blood was concentrated slightly in the sigmoid area but there was old blood from the rectum to the cecum. There was no blood coming out of the ileocecal valve. Appendiceal orifice was also identified and the cecum. The right colon was able to be washed out down to a normal surface. The left colon had severe sigmoid diverticulosis. It was able to be cleaned up substantially. It was not able to be cleaned up as much as the right side. There were also little wisps of mucous on this side. Also it was suggested that he probably had diverticular bleed. Scope withdrawn. Findings discussed with the family. The colonoscopic examination took about one hour because of lack of prep and amount of blood and tenuousness of this study.
[2022-10-21] MEDS: Zetia 10 MG PO SCH (08:25)
[2022-10-21] MEDS: Flomax 0.4 MG PO SCH (08:25)
[2022-10-21] MEDS: PROTONIX 40 MG IV IV SCH (08:25)
[2022-10-21] MEDS: NORVASC 5 MG PO SCH (08:25)
[2022-10-21] MEDS: PATIENT OWN MEDICATION PO SCH ×2 (08:25→14:47)
--- NOTE | 2022-10-21 10:59 | PCM.DS ---
Discharge Summary Date of Admission: 10/18/22 19:53 Date of Discharge: 10/21/22 Admitting Physician: KAREN VILLEDA MD Consults: Consults on Case 10/18/22 19:55 Consult Surgery ROUTINE Primary Care Provider: NANCY FUENTES Allergies Allergies cyclobenzaprine [From Flexeril] Adverse Reaction (Severe, Verified 10/18/22 14:23) Hallucinations. Pt and report that it interacted with his parkinsons disease. Hospital Summary - Hospital Course Hospital Course: This is a 72-year-old male with a hx of Parkinson disease, hypertension and has prostate issues.. He presented to ER on 10/18 with rectal bleeding described as multiple clots with multiple episodes of passage of these clots rectally starting at 4AM. He had another episode in the emergency department and then overnight again passing clots. Hgb when came into ER was 10.7. Patient did have rectal bleeding back in 2020 requiring blood transfusion. Work-up was unable to determine the cause of that episode of rectal bleeding. Patient's last colonoscopy was 2016 and it showed benign polyps per patient report. Pt had EGD and colonoscopy yesterday. He also received several units of blood. Hgb stable at 8.0 - Vitals & Intake/Output Vital Signs: Vital Signs Temperature 97.1 F 10/21/22 07:11 Pulse Rate 86 10/21/22 07:11 Respiratory Rate 16 10/21/22 07:11 Blood Pressure 128/58 10/21/22 07:11 O2 Sat by Pulse Oximetry 90 L 10/21/22 07:11 Intake & Output: Intake & Output 10/18/22 10/19/22 10/20/22 10/21/22 11:59 11:59 11:59 11:59 Intake Total 1395 6339 2873 Output Total 550 1550 1250 Balance 845 4789 1623 Weight 89.6 kg 89.6 kg - Lab Result Diagrams: 10/21/22 12:21 10/21/22 07:40 Lab Results-Last 24 Hrs: Lab Results-Last 24 Hours 10/20/22 10/20/22 10/20/22 Range/Units 00:01 03:23 11:19 WBC (4.0-10.5) x10^3/uL RBC (4.1-5.6) x10^6/uL Hgb Cancelled 6.6 L* D 6.7 L* Hct Cancelled 21.0 L 21.1 L MCV (78-100) fL MCH (26-32) pg MCHC (32-36) g/dL RDW (11.5-14.0) % Plt Count (150-450) x10^3/uL MPV (7.5-11.0) fL Sodium (137-145) mmol/L Potassium (3.5-5.1) mmol/L Chloride (98-107) mmol/L Carbon Dioxide (22-30) mmol/L Anion Gap (5-15) MEQ/L BUN (9-20) mg/dL Creatinine (0.66-1.25) mg/dL Estimated GFR ML/MIN Glucose (74-106) mg/dL Calcium (8.4-10.2) mg/dL Magnesium (1.6-2.3) mg/dL Total Bilirubin (0.2-1.3) mg/dL AST (17-59) U/L ALT (0-50) U/L Alkaline Phosphatase (38-126) U/L Serum Total Protein (6.3-8.2) g/dL Albumin (3.5-5.0) g/dL Crossmatch (COMPATIBLE) 10/20/22 10/20/22 10/21/22 Range/Units 16:23 Unknown 00:01 WBC (4.0-10.5) x10^3/uL RBC (4.1-5.6) x10^6/uL Hgb 7.4 L 7.2 L Hct 23.1 L 22.4 L MCV (78-100) fL MCH (26-32) pg MCHC (32-36) g/dL RDW (11.5-14.0) % Plt Count (150-450) x10^3/uL MPV (7.5-11.0) fL Sodium (137-145) mmol/L Potassium (3.5-5.1) mmol/L Chloride (98-107) mmol/L Carbon Dioxide (22-30) mmol/L Anion Gap (5-15) MEQ/L BUN (9-20) mg/dL Creatinine (0.66-1.25) mg/dL Estimated GFR ML/MIN Glucose (74-106) mg/dL Calcium (8.4-10.2) mg/dL Magnesium (1.6-2.3) mg/dL Total Bilirubin (0.2-1.3) mg/dL AST (17-59) U/L ALT (0-50) U/L Alkaline Phosphatase (38-126) U/L Serum Total Protein (6.3-8.2) g/dL Albumin (3.5-5.0) g/dL Crossmatch COMPATIBLE (COMPATIBLE) 10/21/22 10/21/22 10/21/22 Range/Units 01:25 04:25 04:25 WBC 7.3 (4.0-10.5) x10^3/uL RBC 2.71 L (4.1-5.6) x10^6/uL Hgb 8.0 L Hct 25.3 L MCV 93.4 (78-100) fL MCH 29.5 (26-32) pg MCHC 31.6 L (32-36) g/dL RDW 14.8 H (11.5-14.0) % Plt Count 177 (150-450) x10^3/uL MPV 11.2 H (7.5-11.0) fL Sodium 141 141 (137-145) mmol/L Potassium 3.3 L 3.4 L (3.5-5.1) mmol/L Chloride 106 106 (98-107) mmol/L Carbon Dioxide 30 30 (22-30) mmol/L Anion Gap 8.2 8.3 (5-15) MEQ/L BUN 9 7 L (9-20) mg/dL Creatinine 0.66 0.63 L (0.66-1.25) mg/dL Estimated GFR > 60.0 > 60.0 ML/MIN Glucose 88 86 (74-106) mg/dL Calcium 7.9 L 8.0 L (8.4-10.2) mg/dL Magnesium 2.0 (1.6-2.3) mg/dL Total Bilirubin 0.60 (0.2-1.3) mg/dL AST 34 (17-59) U/L ALT 7 (0-50) U/L Alkaline Phosphatase 62 (38-126) U/L Serum Total Protein 5.4 L (6.3-8.2) g/dL Albumin 3.1 L (3.5-5.0) g/dL Crossmatch (COMPATIBLE) 10/21/22 Range/Units 07:40 WBC (4.0-10.5) x10^3/uL RBC (4.1-5.6) x10^6/uL Hgb Hct MCV (78-100) fL MCH (26-32) pg MCHC (32-36) g/dL RDW (11.5-14.0) % Plt Count (150-450) x10^3/uL MPV (7.5-11.0) fL Sodium (137-145) mmol/L Potassium 4.3 D (3.5-5.1) mmol/L Chloride (98-107) mmol/L Carbon Dioxide (22-30) mmol/L Anion Gap (5-15) MEQ/L BUN (9-20) mg/dL Creatinine (0.66-1.25) mg/dL Estimated GFR ML/MIN Glucose (74-106) mg/dL Calcium (8.4-10.2) mg/dL Magnesium (1.6-2.3) mg/dL Total Bilirubin (0.2-1.3) mg/dL AST (17-59) U/L ALT (0-50) U/L Alkaline Phosphatase (38-126) U/L Serum Total Protein (6.3-8.2) g/dL Albumin (3.5-5.0) g/dL Crossmatch (COMPATIBLE) - Radiology Exams Ordered Rad Exams-Entire Visit: Radiology Procedures Category Date Time Status CTA ABD/PEL W AND/OR W/O CONTR [CT] Stat Exams 10/20/22 10:20 Completed - Procedures and Test Procedures and Tests throughout Hospitalization: Therapy Orders & Screens 10/20/22 18:53 Oxygen NASAL CANNULA 2 lpm Comment: Diagnosis: GI Bleed Discharge Exam General Appearance: no apparent distress, alert Neurologic Exam: alert, oriented x 3, cooperative, normal mood/affect, nml cerebellar function, sensation nml, No motor deficits Eye Exam: PERRL, EOMI, eyes nml inspection Ears, Nose, Throat Exam: normal ENT inspection, pharynx normal, moist mucous membranes Neck Exam: normal inspection, non-tender, supple, full range of motion Respiratory Exam: normal breath sounds, lungs clear, No respiratory distress Cardiovascular Exam: regular rate/rhythm, normal heart sounds Gastrointestinal/Abdomen Exam: soft, No tenderness, No mass Male Genitalia Exam: deferred Rectal Exam: deferred Back Exam: normal inspection, normal range of motion, No CVA tenderness, No vertebral tenderness Extremity Exam: normal inspection, normal range of motion Skin Exam: normal color, warm, dry Final Diagnosis/Problem List - Final Discharge Diagnosis/Problem (1) Rectal bleeding Current Visit: Yes Status: Acute Code(s): K62.5 - HEMORRHAGE OF ANUS AND RECTUM (2) Hx of Parkinson's disease Current Visit: No Status: Acute Code(s): Z86.69 - PERSONAL HISTORY OF DIS OF THE NERVOUS SYS AND SENSE ORGANS (3) HTN (hypertension) Current Visit: Yes Status: Acute Code(s): I10 - ESSENTIAL (PRIMARY) HYPERTENSION (4) Anemia Current Visit: No Status: Acute Assessment & Plan: (1) Rectal bleeding Current Visit: Yes Status: Acute Assessment & Plan: - ER physican consulting surgery for possible Colonoscopy - Hgb stable upon admission at 13.4 - recheck H& H at 1900 - CBC, CMP in AM - Protonix 40mg IV BID - IV fluids - NPO at midnight 10/19 - Clear liquid diet - bowl prep started today - plan is for EGD/ Colonoscopy per GS unless needed sooner 10/20 - Continue bowel prep - Pt received several units of PRBC today. - H&H Q 8 - Reviewed GS note and agree with plan - plan is to take pt to OR today for scope 10/21 - Diverticuli seen but no active bleeding yesterday - pt stable and feels much better today - no bloody stools today- resolved Code(s): K62.5 - HEMORRHAGE OF ANUS AND RECTUM (2) Hx of Parkinson's disease Current Visit: No Status: Acute Assessment & Plan: - Continue home meds - no current concerns Code(s): Z86.69 - PERSONAL HISTORY OF DIS OF THE NERVOUS SYS AND SENSE ORGANS (3) HTN (hypertension) Current Visit: Yes Status: Acute Assessment & Plan: - stable Code(s): I10 - ESSENTIAL (PRIMARY) HYPERTENSION (4) Anemia Current Visit: No Status: Acute Qualifiers: Anemia type: other cause Other causes of anemia: acute posthemorrhagic Qualified Code(s): D62 - Acute posthemorrhagic anemia Assessment & Plan: - 2:2 rectal bleeding 10/19 -Hgb 8.9 this am and 8.1 at noon - H&H Q8 10/20 - Hgb 6.6 at 3:30 AM- 1 unit ordered by GS - Hgb 6.7 at 11:19 2 units orderd by GS - Continue to trend 10/21 - Hgb 8.0 @ 4am and 8.1 at 12:21 New RX plan Pepcid, protonix, ferrous sulfate Code(s): D64.9 - ANEMIA, UNSPECIFIED - Discharge Disposition: Home, Self-Care Condition: Stable Prescriptions: New Ferrous Sulfate 325 mg [Feosol 325 mg] 325 mg PO DAILY 30 Days #30 tablet Famotidine 20 mg [Pepcid 20 MG] 20 mg PO BID #60 tablet PANTOPRAZOLE 40 mg Tablet [Protonix 40MG Tablet] 40 mg PO QAM 30 Days #30 tab Continue Amlodipine Besylate 10 mg [Norvasc 10 MG] 10 mg PO DAILY Tamsulosin HCl 0.4 mg [Flomax 0.4 MG] 0.4 mg PO BID Carbidopa/Levodopa [Rytary ER 36.25 mg-145 mg Cap] 3 cap PO TID Lifitegrast [Xiidra] 1 drop DROPS BID Hydrocodone/Acetaminophen [Hydrocodone-Acetamin 7.5-325] 1 tab PO BIDPRN PRN PRN Reason: Pain Fluticasone Propionate [Flonase NASAL] 1 spray IN DAILY PRN PRN PRN Reason: Allergies Ezetimibe 10 mg [Zetia 10 MG] 10 mg PO DAILY Diclofenac Sodium [Voltaren Arthritis Pain] 2 gm TOP DAILY PRN PRN PRN Reason: Pain Cyanocobalamin (Vitamin B-12) [Cyanocobalamin Injection] 1 ml IJ UD Acetaminophen 325 mg [Tylenol 325 mg] 325 mg PO Q4HPRN PRN PRN Reason: Pain Carboxymethylcellulose Sodium [Thera Tears] 1 drop OP Q4H PRN PRN PRN Reason: Dry Eyes Discontinued Pantoprazole 20 mg [Protonix 20MG Tablet] 20 mg PO DAILY Additional Instructions: Iron medication can make your stools dark or black. F/u with PCP, will need CBC repeat CBC to check Hgb. Follow up with: NANCY FUENTES MD [Primary Care Provider] -
[2022-10-21 12:00] VITALS: BP 112/53; PULSE 77; TEMP 97.7; O2SAT 95
[2022-10-21 12:25] LABS: Hematocrit 25.6 % (42-50); Hemoglobin 8.1 g/dL (12.5-18.0)
[2022-11-14] MEDS ORDERED: Cyanocobalamin B-12 1000 MCG/ML IJ SCH (10:00)
== END 2022-10-21 16:15 | disposition home or self-care (01) ==
LOC: ED 13:59 → MED SURG 19:53
PROVIDERS: ADMIT Internal Medicine; ATTEND Internal Medicine
DX: K62.5 Hemorrhage of anus and rectum (principal); Z86.69 Personal history of other diseases of the nervous system and sense organs; K57.30 Diverticulosis of large intestine without perforation or abscess without bleeding; I10 Essential (primary) hypertension; D62 Acute posthemorrhagic anemia; D64.9 Anemia, unspecified; N42.9 Disorder of prostate, unspecified; Z79.899 Other long term (current) drug therapy; Z20.828 Contact with and (suspected) exposure to other viral communicable diseases
CPT/HCPCS: 00813; 36000; 36415; 36430; 43235; 45378; 74174; 74176; 80048; 80053; 82150; 83690; 83735; 84132; 85014; 85018; 85025; 85027; 85610; 86850; 86900; 86901; 86922; 86927; 93268; 94762; 99100; 99140; 99285; G0328; G0378; P9016; P9017; P9073; Q3014; 82274; J0461; J0612; J1610; J2405; J2704; J3480; A9270-GY

== ENCOUNTER 2023-09-07 18:02 | Emergency (ER) | payer MEDICARE ==
--- NOTE | 2023-09-07 18:11 | ERPHSYRPT ---
- History of Present Illness Source: patient, family Exam Limitations: no limitations Hx Tetanus, Diphtheria Vaccination/Date Given: Yes Hx Influenza Vaccination/Date Given: Yes Hx Pneumococcal Vaccination/Date Given: Yes <RANDAL YEH - Last Filed: 09/07/23 18:11> - History of Present Illness Timing/Duration: today Activites at Onset: none Quality: aching Onset Location: other (Suprapubic) Pain Radiation: none Severity of Pain-Max: moderate Severity of Pain-Current: mild Modifying Factors: Improves With: nothing Associated Symptoms: denies symptoms Prior abdominal problems: none <CHRISTOFER SUAREZ - Last Filed: 09/07/23 19:28> - History of Present Illness Time Seen by Provider: 09/07/23 18:11 Physician History: 72-year-old male presents to emergency department for evaluation of urinary retention. Patient has a history of prostate cancer. Patient states that he is actively being treated for urinary tract infection. Patient has been taking all medications as prescribed. No trauma no fever no systemic manifestations. Symptoms are mild to moderate in intensity. No specific worsening or improving factors. Patient voices no other complaints or concerns at this time. Portions of this note were created with voice recognition technology. There may be grammatical, spelling, punctuation or sound alike errors (CHRISTOFER SUAREZ) Allergies/Adverse Reactions: cyclobenzaprine [From Flexeril] Adverse Reaction (Severe, Verified 09/07/23 18:15) Hallucinations. Pt and report that it interacted with his parkinsons disease. Home Medications: Amlodipine Besylate 10 mg [Norvasc 10 MG] 10 mg PO DAILY 07/09/16 [History] Tamsulosin HCl 0.4 mg [Flomax 0.4 MG] 0.4 mg PO BID 07/09/16 [History] Carbidopa/Levodopa [Rytary ER 36.25 mg-145 mg Cap] 3 cap PO TID 10/18/22 [Histo ry] Cyanocobalamin (Vitamin B-12) [Cyanocobalamin Injection] 1 ml IJ UD 10/18/22 [History] Diclofenac Sodium [Voltaren Arthritis Pain] 2 gm TOP DAILY PRN PRN 10/18/22 [History] Ezetimibe 10 mg [Zetia 10 MG] 10 mg PO DAILY 10/18/22 [History] Fluticasone Propionate [Flonase NASAL] 1 spray IN DAILY PRN PRN 10/18/22 [History] Hydrocodone/Acetaminophen [Hydrocodone-Acetamin 7.5-325] 1 tab PO BIDPRN PRN 10/18/22 [History] Lifitegrast [Xiidra] 1 drop DROPS BID 10/18/22 [History] Acetaminophen 325 mg [Tylenol 325 mg] 325 mg PO Q4HPRN PRN 10/19/22 [History] Carboxymethylcellulose Sodium [Thera Tears] 1 drop OP Q4H PRN PRN 10/19/22 [History] - Past Medical History Pertinent Past Medical History: Yes Neurological History: Other ENT History: Cataracts Cardiac History: Hypertension Respiratory History: No Pertinent History Endocrine Medical History: No Pertinent History Musculoskeletal History: Degenerative Disk Disease, Osteoarthritis GI Medical History: GERD, GI Bleed History: No Pertinent History Psycho-Social History: No Pertinent History Male Reproductive Disorders: Prostate Problems Other Medical History: PARKINSONS DISEASE, PROSTATE CANCER, TRIPPLE A (MONITORING IT WITH DR. HOLLOWAY). PSH: R WINIFRED, BACK SURGERY (FUSION), SINUS SX, CATARACTS REMOVED. - Past Surgical History Past Surgical History: Yes Neuro Surgical History: No Pertinent History Cardiac: No Pertinent History Respiratory: No Pertinent History Gastrointestinal: No Pertinent History Genitourinary: No Pertinent History Musculoskeletal: Joint Replacement, Other Male Surgical History: Other Other Surgical History: sinus surgery,right hip replacement. spinal fusion - Social History Smoking Status: Former smoker How long have you smoked: 10 yrs Exposure to second hand smoke: No Drug Use: none Patient Lives Alone: No ([place]) <RANDAL YEH - Last Filed: 09/07/23 18:11> - Review of Systems Constitutional: No Symptoms, No Fever, No Chills Eyes: No Symptoms Ears, Nose, & Throat: No Symptoms Respiratory: No Symptoms, No Cough, No Dyspnea Cardiac: No Symptoms, No Chest Pain, No Edema, No Syncope Abdominal/Gastrointestinal: No Symptoms, No Abdominal Pain, No Nausea, No Vomiting, No Diarrhea Genitourinary Symptoms: No Symptoms, No Dysuria Musculoskeletal: No Symptoms, No Back Pain, No Neck Pain Skin: No Symptoms, No Rash Neurological: No Symptoms, No Dizziness, No Focal Weakness, No Sensory Changes Psychological: No Symptoms Endocrine: No Symptoms Hematologic/Lymphatic: No Symptoms Immunological/Allergic: No Symptoms All Other Systems: Reviewed and Negative <CHRISTOFER SUAREZ - Last Filed: 09/07/23 19:28> - Physical Exam General Appearance: no apparent distress, alert Eye Exam: PERRL/EOMI Ears, Nose, Throat Exam: moist mucous membranes Neck Exam: normal inspection, full range of motion Respiratory Exam: normal breath sounds, lungs clear, airway intact Cardiovascular Exam: regular rate/rhythm, normal peripheral pulses, No edema Gastrointestinal/Abdomen Exam: soft, tenderness (Suprapubic tenderness) Back Exam: normal inspection, No CVA tenderness Extremity Exam: normal inspection, normal range of motion, No pedal edema Neurologic Exam: alert, oriented x 3, cooperative, sensation nml, No motor deficits Skin Exam: normal color, warm, dry, No rash Lymphatic Exam: No adenopathy SpO2 Interpretation: normal SpO2: 95 O2 Delivery: Room Air <CHRISTOFER SUAREZ - Last Filed: 09/07/23 19:28> - Nursing Vital Signs Nursing Vital Signs: Initial Vital Signs Temperature 97.4 F 09/07/23 18:15 Pulse Rate 87 09/07/23 18:15 Respiratory Rate 18 09/07/23 18:15 Blood Pressure 137/77 09/07/23 18:15 O2 Sat by Pulse Oximetry 95 09/07/23 18:15 Pain Scale Pain Intensity 2 - Course Nursing assessment & vital signs reviewed: Yes <CHRISTOFER SUAREZ - Last Filed: 09/07/23 19:28> Ordered Tests: Active Orders 24 hr Category Date Time Status Catheter-[place] Horton STAT Care 09/07/23 18:23 Active CULTURE,URINE Stat Lab 09/07/23 18:39 Ordered UA W/RFX UR CULTURE Stat Lab 09/07/23 18:15 Completed Lab/Rad Data: Laboratory Results 09/07/23 Range/Units 18:15 Urine Color Yellow (Yellow) Urine Appearance Clear (Clear) Urine pH 5.5 (4.6-8.0) Ur Specific [place] 1.025 (1.005-1.030) Urine Protein >=1000 A (Negative) Urine Glucose (UA) Negative (Negative) mg/dL Urine Ketones Trace A (Negative) Urine Blood Moderate A (Negative) Urine Nitrite Negative (Negative) Urine Bilirubin Negative (Negative) Urine Urobilinogen 1.0 A (0.2) mg/dL Ur Leukocyte Esterase Negative (Negative) U Hyaline Cast (Auto) NONE SEEN (0-2) /LPF Urine Microscopic RBC >100 A (0-5) /HPF Urine Microscopic WBC 3-5 (0-5) /HPF Ur Epithelial Cells None Seen (None Seen) /HPF Urine Bacteria None Seen (None Seen) /HPF Urine Culture Reflexed ORDERED SEPARATELY (NO) - Progress Progress: improved Counseled pt/family regarding: lab results, diagnosis, need for follow-up <CHRISTOFER SUAREZ - Last Filed: 09/07/23 19:28> - Progress Progress Note: 72-year-old male presents to our ED for evaluation of urinary retention. At the change of my shift patient had already had a Horton catheter in place. Urinalysis had already been sent. I reviewed the urinalysis results. We observed some hematuria and proteinuria. No evidence of urinary tract infection. Patient currently on oral antibiotics for UTI. It appears the antibiotics are effective. The output observed in the Horton was 600 cc. The urine was somewhat dark. Patient reassessed. He feels well he is asymptomatic at this time. He agrees to maintain the Horton catheter in place. He will follow-up with his urologist on Tuesday as tomorrow is a holiday, for the September. at bedside. They voiced no other complaints or concerns at this time. Portions of this note were created with voice recognition technology. There may be grammatical, spelling, punctuation or sound alike errors Complexity problem addressed is moderate acute complicated. No critical care time. Complex of data reviewed and analyzed is moderate. Test ordered test reviewed results analyzed and correlated clinically with history and physical exam. Risk of complication and or risk morbidity/mortality patient management is moderate. Patient has a indwelling Horton catheter in place that we will stay in place until evaluated by his urologist. Vital stable. Time spent to discharge patient is approximately 20 minutes. Plan of care established for shared decision making. Patient voices no other complaints or concerns at this time. Portions of this note were created with voice recognition technology. There may be grammatical, spelling, punctuation or sound alike errors 09/07/23 19:24 (CHRISTOFER SUAREZ) <RANDAL YEH - Last Filed: 09/07/23 18:11> - Departure Departure Disposition: Home Critical Care Time: No <CHRISTOFER SUAREZ - Last Filed: 09/07/23 19:28> - Departure Clinical Impression: Urinary retention, Hematuria, Proteinuria Condition: Stable Referrals: NANCY FUENTES MD [Primary Care Provider] - Follow up/PCP as directed Additional Instructions: Discharge/Care Plan NOMI WRIGHT was seen on 09/07/23 in the Emergency Room. The patient was counseled regarding Diagnosis,Lab results, Imaging studies, need for follow up and when to return to the Emergency Room. Prescriptions given: Discharge Note I have spoken with the patient and/or caregivers. I have explained the patient's condition, diagnosis and treatment plan based on the information available to me at this time. I have answered the patient's and/or caregiver's questions and addressed any concerns. The patient and/or caregivers have as good understanding of the patient's diagnosis, condition and treatment plan as can be expected at this point. The vital signs have been stable. The patient's condition is stable and appropriate for discharge from the emergency department. The patient will pursue further outpatient evaluation with the primary care physician or other designated or consulting physician as outlined in the discharge instructions. The patient and/or caregivers are agreeable to this plan of care and follow-up instructions have been explained in detail. The patient and/or caregivers have received these instruction. The patient/and or caregivers are aware that any significant change in condition or worsening of symptoms should prompt an immediate return to this or the closest emergency department or call 911.
[2023-09-07 18:15] VITALS: RESP 18; TEMP 97.4
[2023-09-07 18:48] LABS: Appearance Clear (Clear); Bacteria None Seen /HPF (None Seen); Bilirubin Negative (Negative); Blood Moderate (Negative); Epithelial Cells None Seen /HPF (None Seen); Glucose, Urine Negative (Negative); Hyaline Casts NONE SEEN /LPF (0-2); Ketones Trace (Negative); Leukocyte Esterase Negative (Negative); Nitrite Negative (Negative); Ph 5.5 (4.6-8.0); Protein,Urine Dip >=1000 (Negative); RBC >100 /HPF (0-5); Specific Gravity 1.025 (1.005-1.030)
[2023-09-07 18:51] LABS: ADD URINE CULTURE? ORDERED SEPARATELY (NO)
[2023-09-07 19:49] VITALS: BP 154/76; PULSE 78; O2SAT 94
== END 2023-09-07 19:49 | disposition home or self-care (01) ==
LOC: ED 18:02
DX: R33.9 Retention of urine, unspecified (principal); R80.9 Proteinuria, unspecified; R31.9 Hematuria, unspecified; I10 Essential (primary) hypertension; Z79.899 Other long term (current) drug therapy
CPT/HCPCS: 51702; 81001; 87086; 99283